=== PATIENT | male | born 1950 | race Caucasian/White ===

== ENCOUNTER → 2017-01-16 | Outpatient (CLI) | payer OTHER | LOC: FIMAGING 11:52 | PROVIDERS: ATTEND Nurse Practitioner Family | DX: R07.89 Other chest pain (principal); R05 Cough; I25.10 Atherosclerotic heart disease of native coronary artery without angina pectoris ==

== ENCOUNTER 2017-02-12 11:07 | Inpatient (IN) | payer OTHER ==
[~2017-02-12 11:07] MED LIST: BUPIVACAINE/EPI 0.25% 30 ML SDV ONE; LIDOCAINE 1% 5 ML SDV ID PRN; NS 1,000 ML IV ONE; THROMBIN (BOVINE) 5,000 UNIT VIAL TP ONE; ceFAZolin 2 GM/DEXTROSE 100 ML IV ONE
[2017-02-12] MEDS ORDERED: CEFAZOLIN 2 GM/DEXTROSE/100 ML BAG IV ONE (13:12)
[2017-02-12] MEDS ORDERED: MIDAZOLAM 2 MG/2 ML VIAL ONE (13:35)
[2017-02-12] MEDS ORDERED: PROPOFOL/EMULSION 500 MG/50 ML BOTTLE IV ONE (13:36)
[2017-02-12] MEDS ORDERED: fentaNYL 100 MCG/2 ML INJ ONE ×2 (13:38)
[2017-02-12] MEDS ORDERED: ROCURONIUM 100 MG/10 ML VIAL ONE (13:39)
[2017-02-12] MEDS ORDERED: DEXAMETHASONE 4 MG/ML VIAL ONE (13:39)
[2017-02-12] MEDS ORDERED: TEARS/DEXTRAN 70/HYPROMELLOSE 15 ML OPHT.BTL EACHEYE PRN (14:04)
[2017-02-12] MEDS ORDERED: morphINE PF 5 MG/10 ML INJ ONE (14:30)
[2017-02-12] MEDS ORDERED: diphenhydrAMINE 25 MG CAP PO PRN (14:50)
[2017-02-12] MEDS ORDERED: ONDANSETRON 4 MG/2 ML VIAL IVP PRN (14:50)
[2017-02-12] MEDS ORDERED: NALOXONE HCL 0.4 MG/ML INJ IVP PRN (14:50)
[2017-02-12] MEDS ORDERED: NARCOTIC DRIP BAG-TOTAL ALL TYPES EP PRN (14:50)
[2017-02-12] MEDS ORDERED: KETOROLAC 30 MG/1 ML SDV ONE (15:24)
--- NOTE | 2017-02-12 15:39 | POSTOPPROG ---
Post Op Note Date of Operation: 02/12/17 Surgeon: Richard Mckenna Shooter'S Helper: Tila Rubio Anesthesia: Epidural, GET(General Endotracheal) Pre-op Diagnosis: Carcinoma right middle lobe of lung Post-op Diagnosis: Same Indication: Squamous cell Carcinoma right middle lobe Procedure: Right thoracotomy, right middle lobectomy and wedge excision right upper lo Findings: Tumor replaced right middle lobe and was adherent to small part of right up Inf/Abcess present in the surg proc area at time of surgery?: No EBL: 50-100 Complications: None Drains: Other (Chest tube x 2)
[2017-02-12] MEDS ORDERED: SUGAMMADEX SODIUM 200 MG/2 ML VIAL IVP ONE (15:48)
[2017-02-12] MEDS ORDERED: IPRATROPIUM/ALBUTEROL 3 ML DEYVIAL IH PRN (15:55)
[2017-02-12] MEDS ORDERED: MAGNESIUM HYDROXIDE 30 ML UDCUP PO PRN (16:05)
[2017-02-12] MEDS ORDERED: LACTULOSE 20 GM/30 ML UDCUP PO PRN (16:05)
[2017-02-12] MEDS ORDERED: BISACODYL 10 MG SUPP PR PRN (16:05)
[2017-02-12] MEDS ORDERED: POLYETHYLENE GLYCOL 3350 17 GM PKT PO PRN (16:05)
[2017-02-12] MEDS: KETOROLAC 15 MG/1 ML SDV IVP SCH (20:49)
--- NOTE | 2017-02-12 21:11 | GOP ---
[f rep st] OPERATIVE REPORT DATE OF OPERATION: 02/12/2017 SURGEON: Richard Mckenna MD HEM INSPECTOR: OCTAVIO Vincent ANESTHESIA: General endotracheal. PREOPERATIVE DIAGNOSIS: Squamous cell cancer of the right middle lobe of the lung. POSTOPERATIVE DIAGNOSIS: Squamous cell cancer of the right middle lobe of the lung. PROCEDURE PERFORMED: Right thoracotomy, right middle lobectomy, and wedge excision of right upper l obe. FINDINGS: The tumor replaced the entire middle lobe. The major fissure was moderately complete. T here was no involvement of the lower lobe. There was involvement across the fissure to the upper lo be over a small distance of the superficial part of the lobe. ESTIMATED BLOOD LOSS: 50 cc. INDICATIONS: This is a 66-year-old male with a history of smoking, who was found to have a large ri ght middle lobe tumor. It was biopsied and showed squamous cell cancer. PET scan showed no evidenc e of metastatic disease, and he was referred for surgery. DESCRIPTION OF PROCEDURE: Consent was signed. The patient was taken to the operating room, and epi dural was placed, as was an arterial line. General endotracheal anesthesia was administered with a double lumen endotracheal tube. The patient was placed in the lateral decubitus position. The righ t chest was prepped and draped. A right lateral thoracotomy was performed. The patient chest was e ntered through the 5th intercostal space. The pleura was incised, and the inferior pulmonary ligame nt was mobilized. Level 9 and level 10 lymph nodes were removed and sent for permanent section. Af ter exploring the chest, the tumor appeared to be crossing the fissure and involving a little bit of the upper lobe. Using an Dolores stapler, a generous piece of the upper lobe was wedged off to omer ve attached to the tumor. The minor and major fissures were both completed with cautery adjacent to the middle lobe. The middle lobe pulmonary vein was divided with an endovascular stapler. The mid dle lobe pulmonary artery was divided with an endovascular stapler. The bronchus was divided with a n Dolores stapler. The small remaining part of the fissure at the confluence was divided with an Ec helon stapler, and the specimen was removed. Bronchial stump was checked and found to be airtight. Additional level 8, level 7, and level 11 lymph nodes were removed for permanent section. Laineas is was obtained. Intercostal nerve blocks were performed. Two chest tubes were placed in the right chest. Drill holes were placed through the lower rib and the ribs reapproximated with paracostal V icryl sutures, and the remainder of the chest was closed in the usual fashion. Dressings were appli ed. COMPLICATIONS: None. POSTOPERATIVE CONDITION: Stable. Copy requested to: Dr. Kvng Bonner [facility] /[id number]/MODL
[2017-02-12] MEDS: ceFAZolin 2 GM/DEXTROSE 100 ML IV SCH (22:10)
[2017-02-13] MEDS: HYDROmorph 10MCG/ML&BUP 0.1% in 100ML NS EP SCH (00:48)
[2017-02-13] MEDS: KETOROLAC 15 MG/1 ML SDV IVP SCH ×3 (00:52→12:06)
[2017-02-13 05:27] LABS: HEMATOCRIT 41.7 % (40.0-51.0); HEMOGLOBIN 13.7 g/dL (13.7-17.5)
[2017-02-13] MEDS: ceFAZolin 2 GM/DEXTROSE 100 ML IV SCH ×2 (05:47→15:43)
[2017-02-13 06:01] LABS: ANION GAP 9 mEq/L (8-16); CALCIUM 9.3 mg/dL (8.5-10.4); CARBON DIOXIDE 26 mEq/l (22-31); CHLORIDE 104 mEq/L (97-110); CREATININE 0.9 mg/dL (0.7-1.3); GLOMERULAR FILTRATION RATE > 60; GLUCOSE 116 mg/dL (70-100); POTASSIUM 4.9 mEq/L (3.5-5.2); SODIUM 139 mEq/L (134-144)
--- NOTE | 2017-02-13 08:15 | SOAPPROG ---
SOAP Progress Note Assessment/Plan: Assessment: POD#1 Rt thoracotomy, RMLobectomy, wedge rsxn RU lobe, and LN sampling Squamous cell CA of RML of lung - With partial involvement of upper lobe. Tumor excised en bloc via thoracotomy. Await path. Pain well controlled with epidural. Small air leak controlled with suction. Former smoker - 1/2 ppd x 30yrs, successfully quitting 1 mo ago. Extubated without incident. Minimal suppl O2 requirement. Mucolytics and bronchodilators prn. Plan: Keep pleurovac to suction at rest. Ok to convert to WS for ambulation. Keep epidural for 1-2 more days. Trial gonzalez removal. Inc activity and pulm toilet. Ok for tx to PCU. 02/13/17 08:09 Subjective: Comfortable. Tolerating diet and OOB. No acute concerns. Objective: Vital Signs Temp Pulse Resp BP Pulse Ox 37.1 C 69 18 127/61 H 97 02/13/17 05:00 02/13/17 06:01 02/13/17 06:01 02/13/17 06:01 02/13/17 06:01 Laboratory Results 02/13/17 05:10 02/13/17 05:42 02/12/17 02/13/17 02/14/17 05:59 05:59 05:59 Intake Total 2350 Output Total 1690 Balance 660 HR, rhythm and BP stable. Excellent sats on 2 Lpm O2. CXR-> no PTX or undrained pleural effusion. CTOP low. No air leak with nl tidal, intermittent leak w valsalva. Physical Exam - Physical Exam General Appearance: alert, no apparent distress Respiratory: crackles (rt sided, o/w CTA), other (chest tubes x 2 y-d to pleurovac, +tidal, no air leak with weak cough. ) Cardiac/Chest: regular rate, rhythm, other (Rt chest soft, no crepitus. Thoracotomy incision CDI. Small hematoma posterolateral pole. Epidural intact.) Abdomen: non-tender, soft Skin: warm/dry Extremities: other (no visible edema) ICD10 Worksheet Patient Problems: Problems Problem Status Onset S/P lobectomy of lung Acute ~02/12/17 S/P thoracotomy Acute ~02/12/17 Squamous cell carcinoma of right lung Acute Tobacco abuse Chronic
[2017-02-13] MEDS: SENNOSIDES/DOCUSATE SODIUM TAB PO SCH ×2 (09:24→20:27)
[2017-02-13] MEDS: guaiFENesin 600 MG TAB.ER PO SCH ×2 (09:25→20:27)
[2017-02-13] MEDS: DC NARCS MISC SCH (09:25)
[2017-02-13] MEDS: REGARDING ANTICOAG MISC SCH (09:25)
--- NOTE | 2017-02-13 12:19 | SOAPPROG ---
SOAP Progress Note Assessment/Plan: Assessment: Plan: Subjective: Good pain control w/ CTE. Site ok. Decrease infusion to 6cc/hr continue bolus as needed Objective: Vital Signs Temp Pulse Resp BP Pulse Ox 36.9 C 75 20 114/58 L 99 02/13/17 08:00 02/13/17 08:00 02/13/17 08:00 02/13/17 08:00 02/13/17 08:00 Laboratory Results 02/13/17 05:10 02/13/17 05:42 02/12/17 02/13/17 02/14/17 05:59 05:59 05:59 Intake Total 2350 Output Total 1690 Balance 660 ICD10 Worksheet Patient Problems: Problems Problem Status Onset S/P lobectomy of lung Acute ~02/12/17 S/P thoracotomy Acute ~02/12/17 Squamous cell carcinoma of right lung Acute Tobacco abuse Chronic
[2017-02-13] MEDS ORDERED: IBUPROFEN 600 MG TAB PO PRN (18:00)
[2017-02-14] MEDS: HYDROmorph 10MCG/ML&BUP 0.1% in 100ML NS EP SCH (00:05)
--- NOTE | 2017-02-14 08:06 | SOAPPROG ---
SOAP Progress Note Assessment/Plan: POD#2 Rt thoracotomy, RMLobectomy, wedge rsxn RU lobe, and LN sampling Squamous cell CA of RML of lung - With partial involvement of upper lobe. Tumor excised en bloc via thoracotomy. Await path. Pain well controlled with epidural - will keep in one more day. Small air leak resolved. Plan for dc of tube Saturday with discharge home. Former smoker - 1/2 ppd x 30yrs, successfully quitting 1 mo ago. Extubated without incident. Minimal suppl O2 requirement. Mucolytics and bronchodilators prn. Subjective: Pain well-controlled. Denies SOB. Objective: Vital Signs Temp Pulse Resp BP Pulse Ox 36.7 C 69 13 113/50 L 98 02/14/17 04:00 02/14/17 04:00 02/14/17 04:00 02/14/17 04:00 02/14/17 04:00 Laboratory Results 02/13/17 05:10 02/13/17 05:42 02/13/17 02/14/17 02/15/17 05:59 05:59 05:59 Intake Total 2350 2473 Output Total 1690 2295 525 Balance 660 178 -525 Physical Exam - Physical Exam General Appearance: WD/WN, alert, no apparent distress EENT: normal ENT inspection Neck: normal inspection Respiratory: No respiratory distress Cardiac/Chest: regular rate, rhythm, other (CT without air leak) Abdomen: non-tender, soft, No distended Skin: normal color, warm/dry Extremities: No pedal edema Neuro/Psych: no motor/sensory deficits, alert, normal mood/affect, oriented x 3 ICD10 Worksheet Patient Problems: Problems Problem Status Onset S/P lobectomy of lung Acute ~02/12/17 S/P thoracotomy Acute ~02/12/17 Squamous cell carcinoma of right lung Acute Tobacco abuse Chronic
[2017-02-14] MEDS: guaiFENesin 600 MG TAB.ER PO SCH ×2 (08:07→21:13)
[2017-02-14] MEDS: DC NARCS MISC SCH (08:08)
[2017-02-14] MEDS: SENNOSIDES/DOCUSATE SODIUM TAB PO SCH ×2 (08:08→21:13)
[2017-02-14] MEDS: REGARDING ANTICOAG MISC SCH (08:08)
--- NOTE | 2017-02-14 16:39 | SOAPPROG ---
SOAP Progress Note Assessment/Plan: Assessment: Plan: Subjective: pt seen earlier this morning, with good pain control with epidural. plan to discharge tomorrow. Will decrease epidural to 4cc/hr and turn off at 6:00 am. pt to start po meds per CTS. Objective: Vital Signs Temp Pulse Resp BP Pulse Ox 36.9 C 83 20 129/88 H 91 L 02/14/17 14:46 02/14/17 14:46 02/14/17 14:46 02/14/17 14:46 02/14/17 14:46 Laboratory Results 02/13/17 05:10 02/13/17 05:42 02/13/17 02/14/17 02/15/17 05:59 05:59 05:59 Intake Total 2350 1543 750 Output Total 9990 2295 1500 Balance 660 178 -750 ICD10 Worksheet Patient Problems: Problems Problem Status Onset S/P lobectomy of lung Acute ~02/12/17 S/P thoracotomy Acute ~02/12/17 Squamous cell carcinoma of right lung Acute Tobacco abuse Chronic
[2017-02-15] MEDS: HYDROmorph 10MCG/ML&BUP 0.1% in 100ML NS EP SCH (04:46)
--- NOTE | 2017-02-15 07:48 | SOAPPROG ---
SOAP Progress Note Assessment/Plan: Assessment: POD#3 Rt thoracotomy, RMLobectomy, wedge rsxn RU lobe, and LN sampling Squamous cell CA of RML of lung - With partial involvement of upper lobe. Tumor excised en bloc via thoracotomy. Await path. Pain well controlled with epidural. Small air leak resolved. Former smoker - 1/2 ppd x 30yrs, successfully quitting 1 mo ago. Extubated without incident. Minimal suppl O2 requirement. Mucolytics and bronchodilators prn. Plan: Remove chest tubes. Remove epidural. Cont NSAIDs. Trial oral narcs. Inc activity and pulm toilet. Wean O2. Dispo - Home this afternoon if pain controlled. 02/15/17 07:46 Subjective: Feels well. Tolerating light activity with ease. Good appetite. Satisfactory analgesia. Ready to go home. Objective: Vital Signs Temp Pulse Resp BP Pulse Ox 37.1 C 64 16 119/59 L 97 02/15/17 04:00 02/15/17 04:00 02/15/17 04:00 02/15/17 04:00 02/15/17 04:00 Laboratory Results 02/13/17 05:10 02/13/17 05:42 02/14/17 02/15/17 02/16/17 05:59 05:59 05:59 Intake Total 2473 1050 Output Total 2295 2750 Balance 178 -1700 Cardioresp status stable. Min suppl O2 requirement. Min CTOP. No air leak. - Pending Discharge Pending Discharge Within 24 Hours: Yes Pending Discharge Date: 02/16/17 Pending Discharge Time: 11:00 Physical Exam - Physical Exam General Appearance: alert, no apparent distress Respiratory: lungs clear, other (CTs x 2 y-d to pleurovac, thin serosang drainage, nl tidal, no AL) Abdomen: non-tender, soft Skin: warm/dry Extremities: other (no visible edema) ICD10 Worksheet Patient Problems: Problems Problem Status Onset S/P lobectomy of lung Acute ~02/12/17 S/P thoracotomy Acute ~02/12/17 Squamous cell carcinoma of right lung Acute Tobacco abuse Chronic
[2017-02-15 08:25] VITALS: TEMP 98.5
[2017-02-15] MEDS ORDERED: OXYCODONE/APAP 5/325 TAB PO PRN (09:30)
[2017-02-15] MEDS: SENNOSIDES/DOCUSATE SODIUM TAB PO SCH (09:41)
[2017-02-15] MEDS: guaiFENesin 600 MG TAB.ER PO SCH (09:41)
--- NOTE | 2017-02-15 09:41 | SOAPPROG ---
SOAP Progress Note Assessment/Plan: Assessment: Plan: Subjective: Good pain control, going home today. CTE currently off. Cath d/c, tip intact. Starting po meds Objective: Vital Signs Temp Pulse Resp BP Pulse Ox 36.9 C 64 19 138/71 H 96 02/15/17 08:24 02/15/17 08:24 02/15/17 08:24 02/15/17 08:24 02/15/17 08:24 Laboratory Results 02/13/17 05:10 02/13/17 05:42 02/14/17 02/15/17 02/16/17 05:59 05:59 05:59 Intake Total 2473 1050 Output Total 2295 2750 400 Balance 178 -1700 -400 ICD10 Worksheet Patient Problems: Problems Problem Status Onset S/P lobectomy of lung Acute ~02/12/17 S/P thoracotomy Acute ~02/12/17 Squamous cell carcinoma of right lung Acute Tobacco abuse Chronic
[2017-02-15] MEDS: REGARDING ANTICOAG MISC SCH (09:44)
[2017-02-15] MEDS: DC NARCS MISC SCH (10:45)
[2017-02-15 12:37] VITALS: BP 116/63; PULSE 67; RESP 16; O2SAT 93
--- NOTE | 2017-02-15 15:59 | PDDCSUM ---
Discharge Summary Discharge Summary: DATE OF ADMISSION: 02/12/17 DATE OF DISCHARGE: 02/15/17 DISPOSITION: Home, self-care PRINCIPAL ADMISSION DIAGNOSIS: Squamous cell lung carcinoma of the right middle lobe PRINCIPAL DISCHARGE DIAGNOSES: Status post right thoracotomy with right middle lobectomy and wedge resection of the right upper lobe. HISTORY OF PRESENT ILLNESS: 66 yo male smoker with a lingering cough found to have a 6 x 5 x 6 cm squamous cell carcinoma of the right middle lobe by CT guided lung biopsy. PET/CT negative for metastatic disease and referred for surgical excision. MEDICATIONS ON ADMISSION: Natural balance tears 1 drop each eye q2h prn, Ibuprofen 400 mg daily prn ALLERGIES/SENSITIVITIES: NKDA CONSULTANTS: none PROCEDURES/IMAGIN/9 ([facility]): Right posterolateral thoracotomy. Right middle lobectomy. Wedge excision of right upper lobe. Local lymph node sampling. ABBREVIATED HOSPITAL COURSE BY ACTIVE PROBLEM LIST: 1. Squamous cell CA of RML of lung - With partial involvement of upper lobe across the fissure. Tumor excised en bloc via thoracotomy. Path results awaited. Early postop pain well controlled with epidural. Satisfactory analgesia with NSAID and Gaston after chest tubes out. Oncology followup for staging and possible adjuvant therapy. 2. Former smoker - 1/2 ppd x 30yrs, successfully quitting 1 mo ago. Extubated without incident. Minimal suppl O2 requirement. No need for mucolytics or bronchodilators. DISCHARGE CLINICAL INFORMATION: Rt thoracotomy CDI, sutured, +Dermabond. HR 60s-80s. SBP 110s-130s. SpO2 85% RA, correcting to >93% on 1 Lpm O2. Hgb 13.7, HCT 41.7, Na 139, K 4.9, Cr 0.9, Calcium 9.3 DISCHARGE MEDICATIONS: As on admission with the following adjustments: Ok to increase ibuprofen to 600mg with meals and before bed. Max daily dose 3, 200 mg. Not to exceed 1 week of regular use. NEW prescriptions: 1. Gaston 5/325 one tab q 4-8h prn breakthrough incisional discomfort. 2. Oxygen @ 1Lpm continuously or as directed by SpO2. FOLLOW UP APPOINTMENTS: 1. CV surgery: with Dr Leary at [facility] on 02/26 at 10am. 2. Pulmonology: with Dr Zapata at [facility] within 2 weeks. Facilitation of oncology followup. FOLLOW UP TESTING: CXR prior to surgical appointment.
[2017-02-15] MEDS ORDERED: HYDROCODONE/APAP 5/325 TAB PO PRN (16:00)
== END 2017-02-15 17:31 | disposition home or self-care (01) | DRG 165 ==
LOC: F3E 11:07 → F2N 15:00 → F2W 02-14 14:41
PROVIDERS: ADMIT Thoracic Surgery (Cardiothoracic Vascular Surgery); ATTEND Thoracic Surgery (Cardiothoracic Vascular Surgery)
PROC: 0BTD0ZZ Resection of Right Middle Lung Lobe, Open Approach (ICD-10-PCS; principal; 2017-02-12 13:30)
PROC: 07T70ZZ Resection of Thorax Lymphatic, Open Approach (ICD-10-PCS; principal; 2017-02-12 13:30)
PROC: 0BB Respiratory System, Excision (ICD-10-PCS; principal; 2017-02-12 13:30)
DX: C34.2 Malignant neoplasm of middle lobe, bronchus or lung (principal); Z87.891 Personal history of nicotine dependence
CPT/HCPCS: 97116-GP; 97162-GP; 97166-GO; 97535-GO; G8978-GP-CK; G8979-GP-CI; G8980-GP-CI; G8987-GO-CJ; G8988-GO-CI; G8989-GO-CI; J0690; J1100; J1170; J1885; J2250; J2274; J2704; J3010

== ENCOUNTER → 2017-02-22 | Outpatient (CLI) | payer OTHER | LOC: FLAB 14:01 | PROVIDERS: ATTEND Thoracic Surgery (Cardiothoracic Vascular Surgery) | DX: J90 Pleural effusion, not elsewhere classified (principal); J98.11 Atelectasis; Z90.2 Acquired absence of lung [part of] ==

== ENCOUNTER 2017-04-21 20:24 | Inpatient (IN) | payer OTHER ==
--- NOTE | 2017-04-21 20:54 | EDPHY ---
H & P Stated Complaint: pt having vascular issues/pain in R foot x 3 days, think poss blood clot HPI/ROS: CHIEF COMPLAINT: Bilateral foot pain, swelling, and discoloration. HISTORY OF PRESENT ILLNESS: The patient is a 67-year-old male with history of squamous cell lung cancer, who presents with bilateral foot pain, swelling, and discoloration. The patient had a right middle lobectomy in February of 2017 and was started on preventative chemotherapy. Port placement was complicated by pneumothorax. Patient received two rounds of chemotherapy. Shortly after discharge the patient developed severe pain in his right great toe. Pain has persisted and now involves both feet. He has been seen into emergency department so for this pain and has been told that he has peripheral neuropathy. He has been treated with gabapentin and narcotics, with minimal relief. For the last 7 days he has been nonambulatory because of pain. Last week he had an US of his right lower extremity which was reportedly negative for DVT (study done elsewhere). He also had a lumbar MRI performed to assess for spinal cord or nerve root compression. He has not had calf swelling. No new shortness of breath. He quit smoking a few months ago after his lung cancer was diagnosed. Oncologist: Mynor Ruelas Surgeon: Richard Mckenna PCP: Jaren Catrer REVIEW OF SYSTEMS: A ten point review of systems was performed and is negative with the exception of the items mentioned in the HPI. Source: Patient, Family Exam Limitations: No limitations - Medical/Surgical History Hx Asthma: No Hx Chronic Respiratory Disease: No Hx Diabetes: No Hx Cardiac Disease: No Hx Renal Disease: No Hx Cirrhosis: No Hx Alcoholism: No Hx HIV/AIDS: No Hx Splenectomy or Spleen Trauma: No Other PMH: lung ca - partial lobectomy - Social History Smoking Status: Former smoker Additional Social History: . , son, and [id number] at bedside. Patient quit smoking in January. - Physical Exam Exam: General Appearance: Alert. Vital signs reviewed. Thin male. Eyes: Pupils equal and round, no conjunctival injection, no discharge. Anicteric. ENT, Mouth: Mucous membranes are moist, no oropharyngeal erythema or edema. Neck: No lymphadenopathy, supple. Trachea midline. Respiratory: Breath sounds diminished on the right. Cardiovascular: Regular rate and rhythm, no murmur. Gastrointestinal: Abdomen is soft and nontender, no masses or organomegaly, bowel sounds normal. Skin: Warm and dry, no rashes on exposed skin. Pulses: 2+ palpable femoral pulses. Posterior tibial pulses Dopplers bilaterally. On initial exam nursing staff was able to Doppler dorsalis pedis pulses but on a 2nd exam were unable to do so. Both feet are mildly erythematous, cool but not cold. The toes are slightly mottled with some pallor of the toes on the right foot. Neurological: Alert and oriented. Moving all four extremities spontaneously. Psychiatric: Normal affect. Constitutional: Initial Vital Signs Temperature (C) 37.4 C 04/21/17 20:27 Heart Rate 102 H 04/21/17 20:27 Respiratory Rate 18 04/21/17 20:27 Blood Pressure 129/78 H 04/21/17 20:27 O2 Sat (%) 97 04/21/17 20:27 O2 Delivery Mode Room Air Allergies/Adverse Reactions: No Known Allergies Allergy (Verified 04/21/17 20:31) Home Medications: Medication Instructions Recorded Tears/Dextran 70/Hypromellose 1 drop EACHEYE Q2 PRN 02/07/17 [Natural Balance Tears (*)] Hydrocodone/APAP 5/325 [[place] 1 tab PO Q4-8PRN PRN #30 tab 02/15/17 5/325 (*)] Ibuprofen [Motrin (*)] 400 mg PO DAILY PRN #0 02/15/17 Miralax 17 gm (*) 04/21/17 Valium 04/21/17 Medical Decision Making ED Course/Re-evaluation: Patient with history of lung cancer, last chemotherapy April 12, presents with bilateral foot pain, swelling, and discoloration. Patient was evaluated for this 7 days ago and told he had peripheral neuropathy. He was evaluated again because of persistent unremitting pain. He has been on Gabapentin and Narcotics for the past week and found no relief. His pain seems to be worsening. Patient received 0.5mg Dilaudid. I was unable to obtain dorsalis/pedis pulses via Doppler initially, nursing staff was able to Doppler pulses. Patient has normal palpable femoral pulses bilaterally. Patient was given Dilaudid 0.5 mg IV for pain relief. Patient reassessed and I was again unable to Doppler dorsalis pedis pulses. Nursing staff was also unable to do so. Bilateral lower extremity Ultrasound has been ordered and is being performed at 11:00 p.m.. During his stay in the emergency department I have noticed waxing and waning of his symptoms. His foot discoloration comes and goes. I spoke with Dr. Danny Ferreira at about the ultrasound. No DVT in either leg. The material handling technician did look at arterial blood flow during the study, although this was a study to assess the venous system. I was told that arterial flow was seen. At this point in time I do not think that he has a limb at risk. I spoke with the patient and his family with the results of his ultrasound. We spoke at some length about the difficulties he is having at home. He has been unable to ambulate because of pain. He has been taking 2 Vicodin every 4 hours, gabapentin in an escalating dose for the past 5 days, and Valium with minimal relief. Gini is his 3rd emergency department visit over the last week for this problem. He has had a rough course since his lung cancer diagnosis in February. I am recommending hospitalization for pain control and further evaluation as needed. - Data Points Medications Given: Discontinued Medications Hydromorphone HCl (Dilaudid) 0.5 mg IVP EDNOW ONE Stop: 04/21/17 21:47 Last Admin: 04/21/17 22:01 Dose: 0.5 mg Departure - Departure Disposition: [facility] Inpatient Acute Clinical Impression: Peripheral neuropathy due to chemotherapy, Foot pain, bilateral Condition: Good Referrals: Jaren Carter MD [Primary Care Provider] - As per Instructions Negrito Ruelas MD [Medical Doctor] - As per Instructions Report Scribed for: Tori Thurman Report Scribed by: Love Quintero Date of Report: 04/21/17 Time of Report: 21:16 Physician Review and Approval Statement: 04/21/17 20:54 Portions of this note were transcribed by the esthetician and manager medical spa. I, Dr. Tori Thurman, personally performed the history, physical exam, and medical decision- making; and confirmed the accuracy of the information in the transcribed note.
[2017-04-21] MEDS ORDERED: HYDROmorphONE/DILAUDID 1 MG/ML SYR IVP ONE (21:46)
[2017-04-22] MEDS ORDERED: LIDOCAINE/PRILOCAINE 1 EACH CRTUBE TP ONE (01:49)
[2017-04-22] MEDS ORDERED: HYDROmorphONE/DILAUDID 1 MG/ML SYR IVP PRN (02:11)
[2017-04-22] MEDS ORDERED: LACTULOSE 20 GM/30 ML UDCUP PO PRN (02:11)
[2017-04-22] MEDS ORDERED: ONDANSETRON 4 MG/2 ML VIAL IVP PRN (02:11)
[2017-04-22] MEDS ORDERED: ONDANSETRON DISINTEGRATING 4 MG TAB PO PRN (02:11)
[2017-04-22] MEDS ORDERED: POLYETHYLENE GLYCOL 3350 17 GM PKT PO PRN (02:11)
[2017-04-22] MEDS ORDERED: ACETAMINOPHEN 325 MG TAB PO PRN (02:11)
[2017-04-22] MEDS ORDERED: BISACODYL 10 MG SUPP PR PRN (02:11)
[2017-04-22] MEDS ORDERED: MAGNESIUM HYDROXIDE 30 ML UDCUP PO PRN (02:11)
--- NOTE | 2017-04-22 02:24 | PDGENHP ---
History and Physical - Chief Complaint LE pain - History of Present Illness 67 yo male with h/o squamous cell lung cancer presents to ED with burning LE pain. He was diagnosed with lung cancer in 02/2017 and underwent a partial lobectomy with clear margins that month. A port was placed and he suffered a pneumothorax during that event. Since then, he has started chemotherapy with cisplatin and a second agent, which they cannot recall. After his second round of chemo, he developed burning in his LE's. He describes this as feeling like he is being poked by hot pokers. It is worse in the right foot and sometimes is localized to his big toe, but can also spread into his right calf and thigh. His symptoms are worse with ambulation and it has become so painful, he is unable to ambulate. He was started on Gabapentin, currently on 300 mg BID, along with Hydrocodone 8 tabs a day, and Valium. He feels no benefit from this regimen. Overall, he reports a poor appetite, but is eating and drinking without nausea or vomiting. Denies fevers, chills, CP or SOB. In the ED, absent LE pulses were noted. A LE venous u/s was normal and reportedly the tech saw arterial flow. He is admitted to the hospital for further management of his pain. History Information - Allergies/Home Medication List Allergies/Adverse Reactions: No Known Allergies Allergy (Verified 04/21/17 20:31) Home Medications: Tears/Dextran 70/Hypromellose [Natural Balance Tears (*)] 1 drop EACHEYE Q2 PRN 02/07/17 [Last Taken Unknown] Miralax 17 gm (*) 04/21/17 [Last Taken Unknown] Valium 04/21/17 [Last Taken Unknown] I have personally reviewed and updated: family history, medical history, social history, surgical history - Past Medical History Additional medical history: squamous cell lung cancer s/p partial lobectomy, peripheral neuropathy, h/o pneumothorax after port placement in 02/2017 - Surgical History Additional surgical history: Port placement 02/2017, partial lobectomy 02/2017 - Family History Positive for: non-pertinent - Social History Smoking Status: Former smoker Alcohol Use: None Drug Use: None Additional social history: , present at bedside. Review of Systems ROS: 10pt was reviewed & negative except for what was stated in HPI & below Physical Exam Temp Pulse Resp BP Pulse Ox 37.2 C 81 16 157/69 H 96 04/22/17 01:13 04/22/17 01:13 04/22/17 01:13 04/22/17 01:13 04/22/17 01:13 Constitutional: no apparent distress Eyes: PERRL Ears, Nose, Mouth, Throat: moist mucous membranes Cardiovascular: regular rate and rhythym, no murmur, rub, or gallop Respiratory: no respiratory distress, clear to auscultation Gastrointestinal: normoactive bowel sounds, soft, non-tender abdomen Musculoskeletal: other (b/l distal LE's cool to touch with some vague patchy purplish discoloration, absent DP's and PT's) Neurologic: AAOx3 Psychiatric: interacting appropriately Assessment & Plan Assessment: Foot pain, bilateral (Acute) - DDx includes peripheral neuropathy due to side effect from chemo vs symptomatic peripheral artery disease in this former smoker. I discussed the case with Dr. Magallon from the surgery service. He recommends proceeding with CTA given symptoms and exam findings. U/S reportedly showed arterial flow, though this was a venous study and no arterial flow is documented. -CTA abd aorta with b/l LE runoff -assuming above test is neg, will up-titrate gabapentin to 600 mg BID, cont to increase as tolerated -stop norco (ineffective) and start MS Contin 15 mg BID, up-titrate as tolerated -add nortriptyline, watch for side effects -PT/OT to assess mobility Lung cancer - SCC, s/p partial lobectomy with negative margins. Followed by Dr. Ruelas at [facility]. Chemo regimen is cisplatin plus unknown agent. -check cbc, cmp given recent chemo 7 days ago -alert [facility] of pt's admission tomorrow -pt wishes to stop chemo, which he describes as preventive Constipation - bowel regimen Full code DVT PPLX - high risk, Lovenox Dispo - inpt, suspect he'll require >48 hrs hospitalization for acute pain control and mobility issues
[2017-04-22] MEDS: NORTRIPTYLINE HCL 10 MG CAP PO SCH ×2 (02:38→20:37)
[2017-04-22 02:43] LABS: % IMMATURE GRANULYOCYTES 0.2 % (0.0-1.1); ABSOLUTE IMMATURE GRANULOCYTES 0.01 10^3/uL (0.00-0.10); ADD DIFF? NO; ADD MORPH? NO; ADD SCAN? NO; ATYPICAL LYMPHOCYTE FLAG 0 (0-99); FRAGMENT RBC FLAG 0 (0-99); HEMATOCRIT 35.5 % (40.0-51.0); LEFT SHIFT FLG 20 (0-99); LIPEMIA HEMOLYSIS FLAG 90 (0-99); MEAN CELL HEMOGLOBIN 30.4 pg (27.9-34.1); MEAN CELL HEMOGLOBIN CONCENTR. 33.8 g/dL (32.4-36.7); MEAN CELL VOLUME 89.9 fL (81.5-99.8); MEAN PLATELET VOLUME 10.5 fL (8.7-11.7); PLATELET CLUMPS FLAG 0 (0-99); PLATELET COUNT 325 10^3/uL (150-400); RED BLOOD CELL COUNT 3.95 10^6/uL (4.40-6.38); RED CELL DISTRIBUTION WIDTH 13.3 % (11.5-15.2)
[2017-04-22 02:44] LABS: ALANINE AMINOTRANSFERASE 53 IU/L (21-72); ALBUMIN 3.7 g/dL (3.5-5.0); ALKALINE PHOSPHATASE 109 IU/L (38-126); ANION GAP 10 mEq/L (8-16); ASPARTATE AMINOTRANSFERASE 77 IU/L (17-59); BILIRUBIN,TOTAL 0.6 mg/dL (0.1-1.4); CARBON DIOXIDE 28 mEq/l (22-31); CHLORIDE 96 mEq/L (97-110); CREATININE 0.8 mg/dL (0.7-1.3); GLOMERULAR FILTRATION RATE > 60; GLUCOSE 107 mg/dL (70-100); POTASSIUM 4.5 mEq/L (3.5-5.2); SODIUM 134 mEq/L (134-144); TOTAL PROTEIN 6.4 g/dL (6.3-8.2)
[2017-04-22] MEDS ORDERED: IOPAMIDOL (ISOVUE 370) 100 ML BTL IV ONE (02:47)
[2017-04-22] MEDS: morphINE SR 15 MG TAB PO SCH ×3 (02:59→20:37)
[2017-04-22] MEDS: GABAPENTIN 300 MG CAP PO SCH ×3 (02:59→20:37)
[2017-04-22] MEDS ORDERED: HEPARIN 10,000 UNIT/10 ML MDV IVP PRN (04:37)
[2017-04-22] MEDS ORDERED: HEPARIN 10,000 UNIT/10 ML MDV IVP ONE (04:37)
[2017-04-22 05:25] LABS: % IMMATURE GRANULYOCYTES 0.2 % (0.0-1.1); ABSOLUTE IMMATURE GRANULOCYTES 0.01 10^3/uL (0.00-0.10); ADD DIFF? NO; ADD MORPH? NO; ADD SCAN? NO; ATYPICAL LYMPHOCYTE FLAG 50 (0-99); FRAGMENT RBC FLAG 0 (0-99); HEMATOCRIT 33.6 % (40.0-51.0); HEMOGLOBIN 11.6 g/dL (13.7-17.5); LEFT SHIFT FLG 20 (0-99); LIPEMIA HEMOLYSIS FLAG 90 (0-99); MEAN CELL HEMOGLOBIN 30.8 pg (27.9-34.1); MEAN CELL HEMOGLOBIN CONCENTR. 34.5 g/dL (32.4-36.7); MEAN CELL VOLUME 89.1 fL (81.5-99.8); MEAN PLATELET VOLUME 9.6 fL (8.7-11.7); PLATELET CLUMPS FLAG 0 (0-99); PLATELET COUNT 308 10^3/uL (150-400); RED BLOOD CELL COUNT 3.77 10^6/uL (4.40-6.38); RED CELL DISTRIBUTION WIDTH 13.3 % (11.5-15.2)
[2017-04-22 05:33] LABS: PROTIME(PATIENT) 13.1 SEC (12.0-15.0)
[2017-04-22 05:34] LABS: APTT 27.2 SEC (23.0-38.0)
--- NOTE | 2017-04-22 05:38 | HOSPPROG ---
Hospitalist Progress Note Assessment/Plan: Update to H&P: CTA revealed completely thrombosed aorta with collateral blood supply to LE's. His symptoms are claudication rather than peripheral neuropathy. Discussed case with Dr. Mikal Noel, vascular surgeon at [facility]. This is chronic, rather than acute. Will transfer to ICU for heparin drip and consult with Dr. Rubio, vascular surgeon at [facility], in the am. A total of 75 minutes was spent performing initial H&P and follow up visits with pt, along with providing critical care. Objective: Vital Signs Temp Pulse Resp BP Pulse Ox 37.2 C 81 16 157/69 H 96 04/22/17 01:13 04/22/17 01:13 04/22/17 01:13 04/22/17 01:13 04/22/17 01:13 Laboratory Results 04/22/17 05:18 PT 13.1 SEC (12.0-15.0) 04/22/17 05:18 INR 1.00 (0.83-1.16) 04/22/17 05:18 ICD10 Worksheet Patient Problems: Problems Problem Status Onset Foot pain, bilateral Acute Peripheral neuropathy due to chemotherapy Acute S/P lobectomy of lung Acute ~02/12/17 S/P thoracotomy Acute ~02/12/17 Squamous cell carcinoma of right lung Acute Tobacco abuse Chronic
[2017-04-22] MEDS: HEPARIN/DEXTROSE 500 ML IV SCH (05:51)
[2017-04-22] MEDS: HYDROmorphONE/DILAUDID 1 MG/ML SYR IVP PRN ×3 (06:07→18:33)
[2017-04-22] MEDS ORDERED: ENOXAPARIN 40 MG/0.4 ML SYR SC SCH (09:00)
[2017-04-22] MEDS: SENNOSIDES/DOCUSATE SODIUM TAB PO SCH ×2 (09:13→20:37)
--- NOTE | 2017-04-22 14:22 | HOSPPROG ---
Hospitalist Progress Note Assessment/Plan: # Thrombosed Abdominal Aorta- patient presenting with bilateral leg pain- absent LE pulses Aorta runoff (personally reviewed and interpreted) thrombosed aorta with collaterals oxygen saturations 96% on RA - heparin gtt - NPO - Dr. Rubio consulting and coordinating with IR - prn pain meds # squamous cell CA s/p partial lobectomy - oncology will follow along # proph - heparin gtt # Diet- NPO # dispo- > 2MN as pt needs surgical intervention and recovery time prior to dc I have discussed the case with surgery - they will consult and determine best intervention Subjective: pain controlled with IV meds Objective: Vital Signs Temp Pulse Resp BP Pulse Ox 37.2 C 83 18 144/65 H 96 04/22/17 05:48 04/22/17 05:48 04/22/17 05:48 04/22/17 05:48 04/22/17 05:48 Laboratory Results 04/22/17 05:18 PT 13.1 SEC (12.0-15.0) 04/22/17 05:18 INR 1.00 (0.83-1.16) 04/22/17 05:18 - Physical Exam Constitutional: appears nourished Eyes: anicteric sclera Ears, Nose, Mouth, Throat: moist mucous membranes Cardiovascular: regular rate and rhythym Respiratory: no respiratory distress, no rales or rhonchi Gastrointestinal: normoactive bowel sounds Genitourinary: no bladder fullness Skin: warm Musculoskeletal: No asymmetric calves Neurologic: AAOx3 Psychiatric: interacting appropriately, not anxious Lymph, Heme, Immunologic: no cervical LAD ICD10 Worksheet Patient Problems: Problems Problem Status Onset Foot pain, bilateral Acute Peripheral neuropathy due to chemotherapy Acute S/P lobectomy of lung Acute ~02/12/17 S/P thoracotomy Acute ~02/12/17 Squamous cell carcinoma of right lung Acute Tobacco abuse Chronic
[2017-04-22] MEDS: FILGRASTIM-SNDZ 300 MCG/0.5 ML SYR SC SCH (15:47)
[2017-04-22] MEDS ORDERED: LIDOCAINE 2% JELLY 20 ML (UROJECT) ONE (15:53)
[2017-04-22] MEDS: DIAZEPAM 5 MG TAB PO SCH (20:37)
--- NOTE | 2017-04-22 22:25 | SOAPPROG ---
NAGI Progress Note Assessment/Plan: Assessment: 67-year-old male with the acute aortic occlusion on top of chronic stenoses/ patient is difficulty walking for the last several months even as much as 2 years but now suddenly as more severe pain in his legs and CTA demonstrates a complete aortic occlusion down to the inguinal ligament with collateral flow filling up the runoff to his legs. Is concurrently on chemotherapy for lung cancer. This is adamant only has no residual known disease He also has some chronic back pain for which she has had injections and probably has some component of sciatica to explain some of his leg Have discussed his chemotherapy with Dr. Henning and Dr. Sal who feels like he is safe enough to proceed with surgery with a white count of 4000. He is not usually dropped with this chemotherapy Also discussed options with Interventional Radiology do not feel that the taken expeditiously clear this chronic aortic stenosis Will proceed with aortofemoral bypass as soon as we can schedule/risks and options been fully discussed and he wishes to proceed Is status post recent lung lobectomy for cancer His exam reveals no femoral or pedal pulses Plan: Aortofemoral bypass/continue anticoagulation with heparin/repeat the CBC in the a.m. 04/22/17 22:21 Objective: Vital Signs Temp Pulse Resp BP Pulse Ox 36.7 C 83 12 150/66 H 93 04/22/17 20:00 04/22/17 20:00 04/22/17 20:00 04/22/17 20:00 04/22/17 20:00 Laboratory Results 04/22/17 05:18 04/21/17 04/22/17 04/23/17 05:59 05:59 05:59 Intake Total 275 Output Total 1000 Balance -725 PT 13.1 SEC (12.0-15.0) 04/22/17 05:18 INR 1.00 (0.83-1.16) 04/22/17 05:18 ICD10 Worksheet Patient Problems: Problems Problem Status Onset Foot pain, bilateral Acute Peripheral neuropathy due to chemotherapy Acute S/P lobectomy of lung Acute ~02/12/17 S/P thoracotomy Acute ~02/12/17 Squamous cell carcinoma of right lung Acute Tobacco abuse Chronic
[2017-04-23] MEDS: HEPARIN/DEXTROSE 500 ML IV SCH (01:09)
[2017-04-23 04:21] LABS: HEMOGLOBIN 11.8 g/dL (13.7-17.5); MEAN CELL HEMOGLOBIN 30.4 pg (27.9-34.1); MEAN CELL HEMOGLOBIN CONCENTR. 33.7 g/dL (32.4-36.7); MEAN CELL VOLUME 90.2 fL (81.5-99.8); RED BLOOD CELL COUNT 3.88 10^6/uL (4.40-6.38); RED CELL DISTRIBUTION WIDTH 13.5 % (11.5-15.2)
--- NOTE | 2017-04-23 04:26 | GCON ---
[f rep st] CONSULTATION MEDICAL ONCOLOGY CONSULTATION HISTORY OF PRESENT ILLNESS: The patient is a 67-year-old male, who was diagnosed a couple of months ago with a right middle lobe lung carcinoma after presenting with some chest symptoms. This was resected by Dr. Luther and was found to represent an approximately 6 cm squamous cell carcinoma. There was no evidence of antonino involvement. There was evidence of visceropleural invasion. This was staged as a T2b N0 M0, stage IIB lung carcinoma. Adjuvant chemotherapy was recommended and he was treated with 2 treatments of cisplatin and vinorelbine. The most recent was given on 04/12. He has been developing increasing lower extremity pain which was initially felt to be a neuropathy related to chemotherapy; however, because of increasing symptoms, he was brought to the hospital and he was noted to have absent dorsalis pedis pulses. A CT angiogram was performed, which showed a completely thrombosed aorta with collateral blood supply to the lower extremities. Surgery is being contemplated and we are asked to consult, given his recent chemotherapy. Currently, he is awake and alert. He does have some lower extremity discomfort. White count today is 4000, hemoglobin 11.6, hematocrit 33.6, platelets 308,000. Chemistry panel is unremarkable. PAST MEDICAL HISTORY: Significant for a long smoking history, recently discontinued. He did have a pneumothorax after port placement In February of 2017. SOCIAL HISTORY: He is , accompanied by his and children currently PHYSICAL EXAMINATION: VITAL SIGNS: Blood pressure 144/65, temperature 99. He is not icteric. Lungs are clear. Cardiac exam is unremarkable. Abdomen is benign. Lower extremity exam shows absent dorsalis pedis pulse. The right toes are a bit cool to touch. Neurologic exam is nonfocal. LABORATORY DATA: Chemistry panel is unremarkable. IMPRESSION: Patient with resected lung cancer, who has received a couple treatments of adjuvant chemotherapy. He is going to be taken to surgery. Counts are really pretty good at this point in time, but I think to try to avoid neutropenic complications, which would complicate his surgery, I will place him on filgrastim on a daily basis. We will follow his counts. He indicates he does not want to continue with adjuvant chemotherapy. Our service will follow with you. /[id number]/MODL MTDD
[2017-04-23 05:45] LABS: ANION GAP 11 mEq/L (8-16); CALCIUM 9.2 mg/dL (8.5-10.4); CARBON DIOXIDE 26 mEq/l (22-31); CHLORIDE 99 mEq/L (97-110); CREATININE 0.9 mg/dL (0.7-1.3); GLOMERULAR FILTRATION RATE > 60; GLUCOSE 126 mg/dL (70-100); POTASSIUM 4.5 mEq/L (3.5-5.2); SODIUM 136 mEq/L (134-144)
[2017-04-23] MEDS: GABAPENTIN 300 MG CAP PO SCH ×2 (08:50→22:41)
[2017-04-23] MEDS: HYDROmorphONE/DILAUDID 1 MG/ML SYR IVP PRN ×2 (08:50→12:11)
[2017-04-23] MEDS: morphINE SR 15 MG TAB PO SCH ×2 (08:50→22:41)
[2017-04-23] MEDS: SENNOSIDES/DOCUSATE SODIUM TAB PO SCH ×2 (08:50→22:42)
[2017-04-23] MEDS ORDERED: ceFAZolin 2 GM/DEXTROSE 100 ML IV ONE (13:30)
--- NOTE | 2017-04-23 13:36 | SOAPPROG ---
SOAP Progress Note Assessment/Plan: Assessment: 1. Lung ca, s/p chemo, wbc 7K 2. occluded aorta Plan:To surgery today, continue filgrastim 04/23/17 13:35 Subjective: Feels ok Objective: Vital Signs Temp Pulse Resp BP Pulse Ox 99.9 F 81 16 126/61 H 98 04/23/17 12:00 04/23/17 12:00 04/23/17 12:00 04/23/17 12:00 04/23/17 12:00 Laboratory Results 04/23/17 04:00 04/23/17 04:00 04/22/17 04/23/17 04/24/17 05:59 05:59 05:59 Intake Total 821 Output Total 1400 Balance -579 PT 13.1 SEC (12.0-15.0) 04/22/17 05:18 INR 1.00 (0.83-1.16) 04/22/17 05:18 ICD10 Worksheet Patient Problems: Problems Problem Status Onset Foot pain, bilateral Acute Peripheral neuropathy due to chemotherapy Acute S/P lobectomy of lung Acute ~02/12/17 S/P thoracotomy Acute ~02/12/17 Squamous cell carcinoma of right lung Acute Tobacco abuse Chronic
--- NOTE | 2017-04-23 14:01 | PDINTPN ---
Special Effects Artist Progress Note Assessment/Plan: Assessment: Severe PAD: Pain improved. Anemia: Hgb stable Lung Ca: s/p RUL resection. On chemo, WBC low yesterday, higher today Plan: Aorto-bifem later today. Follow Hgb, WBC. Subjective: Pain better today, primarily right foot. No other complaints Objective: Vital Signs Temp Pulse Resp BP Pulse Ox 37.7 C 81 16 126/61 H 98 04/23/17 12:00 04/23/17 12:00 04/23/17 12:00 04/23/17 12:00 04/23/17 12:00 Laboratory Results 04/23/17 04:00 04/23/17 04:00 04/22/17 04/23/17 04/24/17 05:59 05:59 05:59 Intake Total 821 Output Total 1400 Balance -579 PT 13.1 SEC (12.0-15.0) 04/22/17 05:18 INR 1.00 (0.83-1.16) 04/22/17 05:18 Physical Exam - Physical Exam General Appearance: alert, no apparent distress EENT: normal ENT inspection Neck: normal inspection Respiratory: chest non-tender, lungs clear, normal breath sounds Cardiac/Chest: regular rate, rhythm, No edema Peripheral Pulses: 0: dorsalis-pedis (R), dorsalis-pedis (L) Abdomen: normal bowel sounds, non-tender, soft Skin: normal color, warm/dry Extremities: non-tender, normal inspection Neuro/Psych: alert, normal mood/affect, oriented x 3, No motor weakness ICD10 Worksheet Patient Problems: Problems Problem Status Onset Foot pain, bilateral Acute Peripheral neuropathy due to chemotherapy Acute S/P lobectomy of lung Acute ~02/12/17 S/P thoracotomy Acute ~02/12/17 Squamous cell carcinoma of right lung Acute Tobacco abuse Chronic
[2017-04-23] MEDS: FILGRASTIM-SNDZ 300 MCG/0.5 ML SYR SC SCH (14:10)
[2017-04-23] MEDS ORDERED: THROMBIN (BOVINE) 5,000 UNIT VIAL TP ONE (16:01)
[2017-04-23] MEDS ORDERED: BUPIVACAINE 0.5% 30 ML SDV ONE (16:02)
--- NOTE | 2017-04-23 17:50 | PDANEPAE ---
ANE History of Present Illness aorto bi femoral bypass ANE Past Medical History - Cardiovascular History Hx Hypertension: No Hx Arrhythmias: No Hx Chest Pain: No Hx Coronary Artery / Peripheral Vascular Disease: No Hx CHF / Valvular Disease: No Hx Palpitations: No - Pulmonary History Hx COPD: No Hx Asthma/Reactive Airway Disease: No Hx Recent Upper Respiratory Infection: No Hx Oxygen in Use at Home: No Hx Sleep Apnea: No Sleep Apnea Screening Result - Last Documented: Negative Pulmonary History Comment: recent chest tightness/congestion.R sided lung mass- denies SOB. quit smoking last month-4-5 cigs /day for 40 years - Neurologic History Hx Cerebrovascular Accident: No Hx Seizures: No Hx Dementia: No - Endocrine History Hx Diabetes: No - Renal History Hx Renal Disorders: No - Liver History Hx Hepatic Disorders: No - Neurological & Psychiatric Hx Hx Neurological and Psychiatric Disorders: Yes Neurological / Psychiatric History Comment: low back pain with pain in both legs (alternates legs) - Cancer History Hx Cancer: Yes Cancer History Comment: R lung, currently on chemo - Congenital Disorder History Hx Congenital Disorders: No - GI History GERD: no Hx Gastrointestinal Disorders: No - Other Health History Other Health History: seasonal allergies - Chronic Pain History Chronic Pain: No - Surgical History Prior Surgeries: tonsillectomy-child, lobectomy, port placement ANE Patient History - Allergies Allergies/Adverse Reactions: No Known Allergies Allergy (Verified 04/21/17 20:31) - Home Medications Home Medications: Diazepam [Valium 5 MG (*)] 5 mg PO HS 04/21/17 [Last Taken 04/20/17] Polyethylene Glycol 3350 [Miralax 17 gm (*)] 17 gm PO DAILY PRN 04/21/17 [Last Taken Unknown] Gabapentin [Neurontin 300 MG (*)] 300 mg PO TID 04/22/17 [Last Taken 04/21/17 16 :00] Herbals/Supplements -Info Only 1 each PO DAILY 04/22/17 [Last Taken Unknown] Multivitamins [Multivitamin (*)] 1 each PO DAILY 04/22/17 [Last Taken Unknown] Vitamin B Complex [Super B-50 Complex] 1 each PO DAILY 04/22/17 [Last Taken Unknown] - NPO status NPO Since - Liquids (Date): 04/23/17 NPO Since - Liquids (Time): 00:00 NPO Since - Solids (Date): 04/23/17 NPO Since - Solids (Time): 00:00 - Anes Hx Anes Hx: no prior problems - Smoking Hx Smoking Status: Former smoker - Alcohol Use Alcohol Use: None - Family Anes Hx Family Hx Anesthesia Complications: hx of n/v with pt.'s son ANE Labs/Vital Signs - Labs Result Diagrams: 04/23/17 04:00 04/23/17 04:00 - Vital Signs Blood Pressure: 134/59 Heart Rate: 84 Respiratory Rate: 16 O2 Sat (%): 100 Height: 172.72 cm Weight: 68.039 kg ANE Physical Exam - Airway Neck exam: FROM Mouth exam: dentures (partial upper dentures) - Pulmonary Pulmonary: clear to auscultation - Cardiovascular Cardiovascular: regular rate and rhythym - ASA Status ASA Status: III ANE Anesthesia Plan Anesthesia Plan: general endotracheal anesthesia
[2017-04-23] MEDS ORDERED: PROPOFOL 200 MG/20 ML VIAL ONE (18:07)
[2017-04-23] MEDS ORDERED: ROCURONIUM 50 MG/5 ML VIAL ONE ×2 (18:08→19:25)
[2017-04-23] MEDS ORDERED: fentaNYL 100 MCG/2 ML INJ ONE ×4 (18:08→20:59)
[2017-04-23] MEDS ORDERED: DEXAMETHASONE 4 MG/ML VIAL ONE (18:12)
[2017-04-23] MEDS ORDERED: PHENYLEPHRINE 10 MG/ML SDV ONE (18:13)
[2017-04-23] MEDS ORDERED: MIDAZOLAM 2 MG/2 ML VIAL ONE (18:26)
[2017-04-23] MEDS ORDERED: CITRATE DEXTROSE SOLN 500 ML BAG ONE ×2 (18:43→19:10)
[2017-04-23] MEDS ORDERED: REMIFENTANIL HCL 1 MG VIAL ONE ×2 (19:20→20:41)
[2017-04-23] MEDS ORDERED: PROTAMINE SULFATE 50 MG/5 ML VIAL IVP ONE ×2 (19:43→21:23)
[2017-04-23] MEDS ORDERED: HEPARIN 10,000 UNIT/10 ML MDV ONE (19:49)
[2017-04-23 19:58] LABS: BASE EXCESS -1.5 mEq/L (-2.5-2.5); BICARBONATE 22 mEq/L (22-26); HEMOGLOBIN ABG 10.6 gm/dL (14.5-17.3); IONIZED CALCIUM 1.15 MMOL/L (1.12-1.30); MEASURED OXYGEN SATURATION 99 % (92-95); PCO2 32 mmHg (34-38); PO2 150 mmHg (65-75); SODIUM ABG 133 mEq/L (137-146); TCO2 23 mEq/L (23-27)
--- NOTE | 2017-04-23 20:09 | HOSPPROG ---
Hospitalist Progress Note Assessment/Plan: # Thrombosed Abdominal Aorta- patient presenting with bilateral leg pain- absent LE pulses Aorta runoff - thrombosed aorta with collaterals TELE (personally reviewed and interpreted) sinus rhythm oxygen saturations 96% on 2L - heparin gtt - NPO for OR today - prn pain meds #Leukopenia - s/p filgrastim WBC 4-> 7 this am # squamous cell CA s/p partial lobectomy - oncology will follow along # proph - heparin gtt # Diet- NPO # dispo- > 2MN as pt needs surgical intervention and recovery time prior to dc I have discussed the case with surgery - pt to OR today for bypass Subjective: pain treated overnight Objective: Vital Signs Temp Pulse Resp BP Pulse Ox 37.7 C 84 16 134/59 H 100 04/23/17 12:00 04/23/17 17:54 04/23/17 17:54 04/23/17 17:54 04/23/17 17:54 Laboratory Results 04/23/17 04:00 04/23/17 04:00 04/22/17 04/23/17 04/24/17 05:59 05:59 05:59 Intake Total 821 Output Total 1400 Balance -579 PT 13.1 SEC (12.0-15.0) 04/22/17 05:18 INR 1.00 (0.83-1.16) 04/22/17 05:18 - Physical Exam Constitutional: appears nourished Eyes: anicteric sclera Ears, Nose, Mouth, Throat: moist mucous membranes Cardiovascular: regular rate and rhythym Respiratory: no respiratory distress Gastrointestinal: normoactive bowel sounds, soft, non-tender abdomen Genitourinary: no bladder fullness Skin: warm, other (dark discoloration of medial aspect of right great toe), No mottled Musculoskeletal: No asymmetric calves Neurologic: AAOx3 Psychiatric: interacting appropriately Lymph, Heme, Immunologic: no cervical LAD ICD10 Worksheet Patient Problems: Problems Problem Status Onset Foot pain, bilateral Acute Peripheral neuropathy due to chemotherapy Acute S/P lobectomy of lung Acute ~02/12/17 S/P thoracotomy Acute ~02/12/17 Squamous cell carcinoma of right lung Acute Tobacco abuse Chronic
--- NOTE | 2017-04-23 20:41 | POSTOPPROG ---
Post Op Note Date of Operation: 04/23/17 Surgeon: Taqueria Rubio Paper Pattern Inspector: 1. Liam Delvalle MD; 2. Nickie Forman PA-C Anesthesiologist: Ventura Sapp Anesthesia: GET(General Endotracheal) Pre-op Diagnosis: aortic occlusion Post-op Diagnosis: same Procedure: aortobifemoral bypass Findings: mixed calcified and ulcerated plaque with fresh clot Inf/Abcess present in the surg proc area at time of surgery?: No EBL: 500cc Complications: none
[2017-04-23] MEDS ORDERED: NALOXONE HCL 0.4 MG/ML INJ IVP PRN (20:42)
[2017-04-23] MEDS ORDERED: OXYCODONE/APAP 5/325 TAB PO PRN (20:43)
[2017-04-23] MEDS ORDERED: FUROSEMIDE 20 MG/2 ML VIAL ONE (20:44)
[2017-04-23] MEDS ORDERED: MANNITOL 20% 100 GM/500 ML BAG IV ONE (21:23)
[2017-04-23] MEDS ORDERED: DEXMEDETOMIDINE HCL 400 MCG in NS 100 ML IV SCH (21:30)
[2017-04-23] MEDS ORDERED: ONDANSETRON 4 MG/2 ML VIAL ONE (21:59)
--- NOTE | 2017-04-23 22:36 | POSTANESTH ---
Post Anesthetic Evaluation Cardiovascular Status: Normal, Stable Respiratory Status: Normal, Stable Level of Consciousness/Mental Status: Mildly Sleepy, Arousable Pain Control: Adequate, Prn Tx Ordered Nausea/Vomiting Control: Adequate, Prn Tx Ordered Complications Possibly Related to Anesthesia: None Noted (Sedated, on Presedex.)
[2017-04-23] MEDS: NS 1,000 ML IV SCH (22:37)
[2017-04-23] MEDS: DIAZEPAM 5 MG TAB PO SCH (22:41)
[2017-04-23] MEDS: NORTRIPTYLINE HCL 10 MG CAP PO SCH (22:41)
[2017-04-24] MEDS: HYDROmorphONE/DILAUDID 1 MG/ML SYR IVP PRN ×4 (00:17→18:44)
[2017-04-24] MEDS: HYDROmorphONE/DILAUDID 6 MG/30 ML PCA IV PRN (00:43)
[2017-04-24 04:02] LABS: HEMATOCRIT 37.5 % (40.0-51.0); HEMOGLOBIN 12.6 g/dL (13.7-17.5); MEAN CELL HEMOGLOBIN 30.3 pg (27.9-34.1); MEAN CELL HEMOGLOBIN CONCENTR. 33.6 g/dL (32.4-36.7); MEAN CELL VOLUME 90.1 fL (81.5-99.8); RED BLOOD CELL COUNT 4.16 10^6/uL (4.40-6.38); RED CELL DISTRIBUTION WIDTH 13.8 % (11.5-15.2)
[2017-04-24 04:14] LABS: ANION GAP 11 mEq/L (8-16); CALCIUM 8.3 mg/dL (8.5-10.4); CARBON DIOXIDE 20 mEq/l (22-31); CHLORIDE 105 mEq/L (97-110); GLOMERULAR FILTRATION RATE > 60; GLUCOSE 121 mg/dL (70-100); POTASSIUM 4.7 mEq/L (3.5-5.2); SODIUM 136 mEq/L (134-144)
[2017-04-24] MEDS: GABAPENTIN 300 MG CAP PO SCH ×2 (08:31→20:27)
[2017-04-24] MEDS: SENNOSIDES/DOCUSATE SODIUM TAB PO SCH ×2 (08:31→20:28)
[2017-04-24] MEDS: morphINE SR 15 MG TAB PO SCH ×2 (08:31→20:28)
--- NOTE | 2017-04-24 09:07 | SOAPPROG ---
NAGI Progress Note Assessment/Plan: Assessment: 67-year-old male with the acute aortic occlusion on top of chronic stenoses/ patient is difficulty walking for the last several months even as much as 2 years but now suddenly as more severe pain in his legs and CTA demonstrates a complete aortic occlusion down to the inguinal ligament with collateral flow filling up the runoff to his legs. Is concurrently on chemotherapy for lung cancer. This is adamant only has no residual known disease He also has some chronic back pain for which she has had injections and probably has some component of sciatica to explain some of his leg Have discussed his chemotherapy with Dr. Henning and Dr. Sal who feels like he is safe enough to proceed with surgery with a white count of 4000. He is not usually dropped with this chemotherapy Also discussed options with Interventional Radiology do not feel that the taken expeditiously clear this chronic aortic stenosis Will proceed with aortofemoral bypass as soon as we can schedule/risks and options been fully discussed and he wishes to proceed Is status post recent lung lobectomy for cancer His exam reveals no femoral or pedal pulses Plan: Aortofemoral bypass/continue anticoagulation with heparin/repeat the CBC in the a.m. 04/22/17 22:21 04/24/17 09:05 VS OK/ WOUNDS OK/ + PULSES/ FEET WARM/ ABD SOFT/ HCT STABLE/ CREAT OK/ UO + Objective: Vital Signs Temp Pulse Resp BP Pulse Ox 36.7 C 83 15 106/48 L 99 04/24/17 00:00 04/24/17 07:00 04/24/17 07:00 04/24/17 07:00 04/24/17 07:00 Laboratory Results 04/24/17 03:45 04/24/17 03:45 04/23/17 04/24/17 04/25/17 05:59 05:59 05:59 Intake Total 821 955 Output Total 1400 500 Balance -579 455 PT 13.1 SEC (12.0-15.0) 04/22/17 05:18 INR 1.00 (0.83-1.16) 04/22/17 05:18 ICD10 Worksheet Patient Problems: Problems Problem Status Onset Foot pain, bilateral Acute Peripheral neuropathy due to chemotherapy Acute S/P lobectomy of lung Acute ~02/12/17 S/P thoracotomy Acute ~05/09/17 Squamous cell carcinoma of right lung Acute Tobacco abuse Chronic
--- NOTE | 2017-04-24 12:09 | SOAPPROG ---
SOAP Progress Note Assessment/Plan: Assessment: 1. Lung ca, s/p chemo, wbc 13 k 2. occluded aorta, s/p aorto bifem bypass Plan:Hold filgrastim for now, follow wbc 04/23/17 13:35 04/24/17 12:07 Objective: Vital Signs Temp Pulse Resp BP Pulse Ox 97.9 F 77 12 85/53 L 97 04/24/17 08:00 04/24/17 09:00 04/24/17 09:00 04/24/17 09:00 04/24/17 09:00 Laboratory Results 04/24/17 03:45 04/24/17 03:45 04/23/17 04/24/17 04/25/17 05:59 05:59 05:59 Intake Total 821 955 Output Total 1400 500 165 Balance -579 455 -165 PT 13.1 SEC (12.0-15.0) 04/22/17 05:18 INR 1.00 (0.83-1.16) 04/22/17 05:18 ICD10 Worksheet Patient Problems: Problems Problem Status Onset Foot pain, bilateral Acute Peripheral neuropathy due to chemotherapy Acute S/P lobectomy of lung Acute ~02/12/17 S/P thoracotomy Acute ~02/12/17 Squamous cell carcinoma of right lung Acute Tobacco abuse Chronic
[2017-04-24] MEDS: FAMOTIDINE 20 MG/NACL 50 ML IV SCH ×2 (12:55→20:58)
--- NOTE | 2017-04-24 16:07 | HOSPPROG ---
Hospitalist Progress Note Assessment/Plan: assessment: 67-year-old male presents with acute aortic thrombus resulting in claudication Plan: # Thrombosed Abdominal Aorta. Resulting in claudication symptoms, right greater than left, requiring aortofemoral bypass, postop day 1 - patient presenting with bilateral leg pain, absent LE pulses - Aorta runoff, thrombosed aorta with collaterals - limited mobility to less than 45 degrees upright, remain NPO - holding systemic anticoagulation we initiating Lovenox tomorrow a.m. per surgery team # squamous cell CA s/p partial lobectomy - status post pegfilgrastim - oncology consultation appreciated # chronic pain w/ continuous opiate dependency. 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 Worrell on team rounds, we agreed to continue to augment with Precedex to relieve anxiety regarding pain control - once he is able to tolerate oral intake, reinitiate sustained release morphine immediately # proph. Holding pharm given postop status, reinitiate tomorrow # Diet. NPO # code. full # dispo.Pain management requiring intense use of LOCKSTITCH TUNNEL ELASTIC OPERATOR and Precedex, continue ICU level care Subjective: patient reports the pain is a significant issue Objective: Vital Signs Temp Pulse Resp BP Pulse Ox 36.9 C 77 12 100/53 L 99 04/24/17 15:00 04/24/17 15:00 04/24/17 15:00 04/24/17 15:00 04/24/17 15:00 Laboratory Results 04/24/17 03:45 04/24/17 03:45 04/23/17 04/24/17 04/25/17 05:59 05:59 05:59 Intake Total 821 955 Output Total 1400 500 415 Balance -579 455 -415 PT 13.1 SEC (12.0-15.0) 04/22/17 05:18 INR 1.00 (0.83-1.16) 04/22/17 05:18 - Physical Exam Constitutional: no apparent distress, not in pain, chronically ill appearing, uncomfortable Cardiovascular: systolic murmur ( 106 at the sternum), other ( palpable pulses in bilateral popliteals and dorsalis pedis), No irregularly irregular, No tachycardia Respiratory: no respiratory distress, no rales or rhonchi, clear to auscultation Gastrointestinal: tenderness ( mild to moderate palpation), other ( large abdominal incision site), No normoactive bowel sounds ( hypoactive bowel sounds) , No guarding Skin: other ( no erythema or ecchymoses surrounding the incision site) Psychiatric: other ( lethargic but arousable) ICD10 Worksheet Patient Problems: Problems Problem Status Onset Foot pain, bilateral Acute Peripheral neuropathy due to chemotherapy Acute S/P lobectomy of lung Acute ~02/12/17 S/P thoracotomy Acute ~02/12/17 Squamous cell carcinoma of right lung Acute Tobacco abuse Chronic
--- NOTE | 2017-04-24 16:24 | PDINTPN ---
Acute Care Assistant Progress Note Assessment/Plan: Assessment: Severe PAD: Pain improved. S/P Ao-bifem: Has surgical pain and ileus, as expected. Anemia: Hgb stable Lung Ca: s/p RUL resection. On chemo, WBC up last 2 days Plan: Follow Hgb, WBC. 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 Continue NPO 04/24/17 16:24 Subjective: C/O abdominal pain, not leg pain. Pain control fairly good. Objective: Vital Signs Temp Pulse Resp BP Pulse Ox 36.9 C 77 12 100/53 L 99 04/24/17 15:00 04/24/17 15:00 04/24/17 15:00 04/24/17 15:00 04/24/17 15:00 Laboratory Results 04/24/17 03:45 04/24/17 03:45 04/23/17 04/24/17 04/25/17 05:59 05:59 05:59 Intake Total 821 955 Output Total 1400 500 415 Balance -579 455 -415 PT 13.1 SEC (12.0-15.0) 04/22/17 05:18 INR 1.00 (0.83-1.16) 04/22/17 05:18 Physical Exam - Physical Exam General Appearance: alert, no apparent distress EENT: normal ENT inspection Neck: normal inspection Respiratory: lungs clear, normal breath sounds Cardiac/Chest: regular rate, rhythm, No edema Abdomen: soft, No normal bowel sounds (absent), No non-tender Skin: normal color, warm/dry Extremities: normal inspection Neuro/Psych: alert, normal mood/affect, oriented x 3 ICD10 Worksheet Patient Problems: Problems Problem Status Onset Foot pain, bilateral Acute Peripheral neuropathy due to chemotherapy Acute S/P lobectomy of lung Acute ~02/12/17 S/P thoracotomy Acute ~02/12/17 Squamous cell carcinoma of right lung Acute Tobacco abuse Chronic
--- NOTE | 2017-04-24 18:00 | GCON ---
[f rep st] CONSULTATION PULMONARY/CRITICAL CARE CONSULTATION DATE OF CONSULTATION: 04/22/2017 REFERRING PHYSICIAN: Carmencita Marquez MD REASON FOR CONSULTATION: Evaluation and management of lung cancer and anemia. 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 This was resected by Dr. Mckenna and was approximately 6 cm in size. It was squamous cell carcinoma. There was no antonino involvement but there was evidence of pleural invas ion. The stage is a 2b carcinoma. The patient received 2 treatments with cisplatin and vinorelbine . The most recent was on April 12. Over the past month or so, the patient had developed progressivel y increased leg pain that was felt to be due to neuropathy. He was admitted for worsening pain cont rol and was found to have extensive vascular disease with a thrombosed aorta that was felt to be acu te on chronic. He was seen in consultation by Dr. Rubio who has recommended an aortobifem bypass, b ut is somewhat concerned because the patient has recently received chemotherapy and his white blood count has been falling. The patient also has mild anemia. PAST MEDICAL HISTORY: 1. Pneumothorax, status post port placement in February of 2017. 2. Squamous cell carcinoma of the lung. MEDICATIONS: At the time of admission include [place], Valium, MiraLAX and Neurontin. ALLERGIES: None. SOCIAL HISTORY: The patient is . He is a former smoker. FAMILY HISTORY: Unremarkable. REVIEW OF SYSTEMS: A 10-point review of systems adds nothing to the History of Present Illness. PHYSICAL EXAMINATION: GENERAL: The patient is awake, alert, and in no acute distress. VITAL SIGNS : Blood pressure is 144/65 with a heart rate of 83, he is afebrile. Oxygen saturations are 96% on room air. HEENT: Normocephalic and atraumatic. No icterus. NECK: No JVD. Trachea is midline. CHEST: Clear to auscultation. CARDIAC: Regular rate and rhythm without murmur. ABDOMEN: Soft, n ontender. Bowel sounds are present. EXTREMITIES: No clubbing, cyanosis, or edema. He has absent pulses peripherally. His feet are slightly cool but not cold, and he has slightly delayed capillary refill. NEURO: The patient is awake, alert, and moves all extremities without asymmetric weakness . LABORATORY: Chemistry group is normal. CBC shows white blood count is 4.2 with a hemoglobin 11.6 a nd a platelet count of 308. A CT scan of the aorta shows aortoiliac occlusion in the infrarenal aorta as well as some stenosis o f the femoral arteries. Images reviewed. ASSESSMENT: 1. Aortoiliac occlusion. This is likely the cause of the patient's pain, which is most likely laura dication rather than neuropathic pain. 2. Anemia. This may be due to the patient's recent chemotherapy. 3. Leukopenia. This is mild and likely related to the patient's chemotherapy. 4. Lung cancer, status post resection with chemotherapy. The patient has no evidence of metastatic disease. RECOMMENDATIONS: Agree with proceeding with aortobifem bypass with approval of Oncology. His count s are slightly down but likely will not significantly increase his surgical risk. His hemoglobin an d white blood count will be followed closely. /[id number]/MODL
[2017-04-24] MEDS: DIAZEPAM 5 MG TAB PO SCH (20:27)
[2017-04-24] MEDS: NORTRIPTYLINE HCL 10 MG CAP PO SCH (20:28)
[2017-04-24] MEDS: NS 1,000 ML IV SCH (22:05)
[2017-04-25] MEDS: HYDROmorphONE/DILAUDID 1 MG/ML SYR IVP PRN ×2 (01:32→04:12)
[2017-04-25] MEDS: NS 1,000 ML IV SCH ×2 (05:51→22:04)
[2017-04-25 06:05] LABS: ABSOLUTE NRBC COUNT 0.02 10^3/uL (0-0.01); ADD DIFF? YES; ADD MORPH? NO; ATYPICAL LYMPHOCYTE FLAG 0 (0-99); FRAGMENT RBC FLAG 0 (0-99); HEMOGLOBIN 9.5 g/dL (13.7-17.5); LIPEMIA HEMOLYSIS FLAG 80 (0-99); MEAN CELL HEMOGLOBIN 30.1 pg (27.9-34.1); MEAN CELL HEMOGLOBIN CONCENTR. 32.8 g/dL (32.4-36.7); MEAN CELL VOLUME 91.8 fL (81.5-99.8); MEAN PLATELET VOLUME 10.1 fL (8.7-11.7); NRBC-AUTO% 0.1 % (0.0-0.2); PLATELET CLUMPS FLAG 0 (0-99); PLATELET COUNT 216 10^3/uL (150-400); RED BLOOD CELL COUNT 3.16 10^6/uL (4.40-6.38)
[2017-04-25 06:10] LABS: ALANINE AMINOTRANSFERASE 34 IU/L (21-72); ALBUMIN 2.1 g/dL (3.5-5.0); ALKALINE PHOSPHATASE 81 IU/L (38-126); ANION GAP 5 mEq/L (8-16); ASPARTATE AMINOTRANSFERASE 42 IU/L (17-59); BILIRUBIN,TOTAL 0.2 mg/dL (0.1-1.4); CARBON DIOXIDE 24 mEq/l (22-31); CHLORIDE 111 mEq/L (97-110); CREATININE 0.9 mg/dL (0.7-1.3); GLOMERULAR FILTRATION RATE > 60; GLUCOSE 106 mg/dL (70-100); POTASSIUM 4.5 mEq/L (3.5-5.2); SODIUM 140 mEq/L (134-144); TOTAL PROTEIN 4.3 g/dL (6.3-8.2)
[2017-04-25 06:20] LABS: ADD SCAN? NO; LEFT SHIFT FLG 300 (0-99)
[2017-04-25 06:52] LABS: PLATELET ESTIMATE ADEQUATE (ADEQ)
[2017-04-25 06:53] LABS: POLYCHROMASIA 1+
[2017-04-25] MEDS: SENNOSIDES/DOCUSATE SODIUM TAB PO SCH ×2 (08:35→21:16)
[2017-04-25] MEDS: morphINE SR 15 MG TAB PO SCH (08:36)
[2017-04-25] MEDS: GABAPENTIN 300 MG CAP PO SCH (08:37)
[2017-04-25] MEDS: FAMOTIDINE 20 MG/NACL 50 ML IV SCH ×2 (08:40→21:15)
[2017-04-25] MEDS: HYDROmorphONE/DILAUDID 6 MG/30 ML PCA IV PRN (09:25)
[2017-04-25] MEDS: KETOROLAC 15 MG/1 ML SDV IVP PRN (11:05)
[2017-04-25] MEDS: ACETAMINOPHEN 500 MG TAB PO SCH ×3 (11:06→21:16)
--- NOTE | 2017-04-25 11:10 | PDINTPN ---
Banking Management Consulting Manager Progress Note Assessment/Plan: Assessment: Severe PAD: Pain improved. S/P Ao-bifem: Has surgical pain and ileus, as expected. Anemia: Hgb down post-op. Lung Ca: s/p RUL resection. On chemo, WBC now high Delerium: Likely due to multiple drugs with THIN FILM TECHNICIAN effects. Slept poorly last night. Plan: Follow Hgb, WBC. RETAIL TRAINING MANAGER Dilaudid and Precedex drip for pain, melatonin. D/C Valium, nortriptyline, gabapentin. Add Toradol and scheduled acetaminophen. Advance PO per Dr. Rubio. Activity as tolerated. 04/25/17 11:10 Subjective: Confused and, at times, a bit agitated. Denies uncontrolled pain. Starting PO. Objective: Vital Signs Temp Pulse Resp BP Pulse Ox 36.4 C 100 29 H 119/57 L 98 04/25/17 08:00 04/25/17 10:14 04/25/17 10:14 04/25/17 10:14 04/25/17 10:14 Laboratory Results 04/25/17 05:38 04/25/17 05:38 04/24/17 04/25/17 04/26/17 05:59 05:59 05:59 Intake Total 955 3100 Output Total 500 1140 Balance 455 1960 PT 13.1 SEC (12.0-15.0) 04/22/17 05:18 INR 1.00 (0.83-1.16) 04/22/17 05:18 Physical Exam - Physical Exam General Appearance: alert, no apparent distress Neck: normal inspection Respiratory: lungs clear, normal breath sounds Cardiac/Chest: regular rate, rhythm, No edema Abdomen: normal bowel sounds, non-tender Skin: normal color, warm/dry Extremities: normal inspection Neuro/Psych: alert, normal mood/affect, oriented x 3 ICD10 Worksheet Patient Problems: Problems Problem Status Onset Foot pain, bilateral Acute Peripheral neuropathy due to chemotherapy Acute S/P lobectomy of lung Acute ~02/12/17 S/P thoracotomy Acute ~02/12/17 Squamous cell carcinoma of right lung Acute Tobacco abuse Chronic
[2017-04-25] MEDS: HYDROmorphONE/DILAUDID 2 MG TAB PO PRN ×2 (11:40→21:16)
[2017-04-25] MEDS: LIDOCAINE 5% 1 EA PATCH TD SCH (13:40)
[2017-04-25] MEDS ORDERED: ACETAMINOPHEN 325 MG TAB PO SCH (16:00)
--- NOTE | 2017-04-25 16:01 | HOSPPROG ---
Hospitalist Progress Note Assessment/Plan: assessment: 67-year-old male presents with acute aortic thrombus resulting in claudication Plan: # Thrombosed Abdominal Aorta. Resulting in claudication symptoms, right greater than left, requiring aortofemoral bypass, postop day 2 - patient presenting with bilateral leg pain, absent LE pulses - Aorta runoff, thrombosed aorta with collaterals - limited mobility to less than 45 degrees upright when in bed, otherwise can ambulate - lovenox to be initiated at direction of gen surg # squamous cell CA s/p partial lobectomy - status post pegfilgrastim - oncology consultation appreciated # chronic pain. likely 2/2 claudication, previously ascribed to back and possible neuropathy - extensively counseled patient / family regarding pain mgmt strategy of removing all sedating Rx and initiating only TELEVISION WRITER dilaudid/PO dilaudid/toradol, and using precedex for sleep # Acute encephalopathy. Evidenced by global brain dysfunction characterized as confusion, disorientation, hallucinations, all of which are an acute change from baseline, secondary to the combined toxic effects of morphine, gabapentin, norco - counseled family that we will stop all Rx other than the primary opiate/NSAID for post-op pain mgmt # proph. Holding pharm given postop status, reinitiate per surg # Diet. Adv per surg # code. full # dispo. Pain management requiring intense use of TELEVISION WRITER and Precedex, continue ICU level care Subjective: patient reports that he has been hallucinating on morning Objective: Vital Signs Temp Pulse Resp BP Pulse Ox 36.5 C 99 27 H 97/55 L 89 L 04/25/17 12:00 04/25/17 15:00 04/25/17 15:00 04/25/17 15:00 04/25/17 15:00 Laboratory Results 04/25/17 05:38 04/25/17 05:38 04/24/17 04/25/17 04/26/17 05:59 05:59 05:59 Intake Total 955 3100 250 Output Total 500 1140 350 Balance 455 1960 -100 PT 13.1 SEC (12.0-15.0) 04/22/17 05:18 INR 1.00 (0.83-1.16) 04/22/17 05:18 - Time Spent With Patient Time Spent with Patient: greater than 35 minutes Time Spent with Patient: Greater than 35 minutes spent on this patients care, greater than 50% of time spent counseling, educating, and coordinating care regarding the above mentioned plan. - Physical Exam Constitutional: chronically ill appearing, uncomfortable ( from back pain) Cardiovascular: systolic murmur ( 1/6 at the apex), pulses symmetric bilaterally ( palpable in the bilateral popliteals), No irregularly irregular, No tachycardia, No edema Respiratory: no respiratory distress, no rales or rhonchi, clear to auscultation , other ( poor inspiratory effort) Gastrointestinal: other ( central abdominal incision site), No normoactive bowel sounds ( hypoactive bowel sounds), No tenderness, No guarding, No distension Neurologic: AAOx3, No facial droop Psychiatric: poor memory, other ( concentration 5/7, naming 3/3, easily distracted and distressed) ICD10 Worksheet Patient Problems: Problems Problem Status Onset Peripheral neuropathy due to chemotherapy Acute Foot pain, bilateral Acute S/P lobectomy of lung Acute ~02/12/17 S/P thoracotomy Acute ~02/12/17 Tobacco abuse Chronic Squamous cell carcinoma of right lung Acute
--- NOTE | 2017-04-25 17:45 | SOAPPROG ---
NAGI Progress Note Assessment/Plan: Assessment: 67-year-old male with the acute aortic occlusion on top of chronic stenoses/ patient is difficulty walking for the last several months even as much as 2 years but now suddenly as more severe pain in his legs and CTA demonstrates a complete aortic occlusion down to the inguinal ligament with collateral flow filling up the runoff to his legs. Is concurrently on chemotherapy for lung cancer. This is adamant only has no residual known disease He also has some chronic back pain for which she has had injections and probably has some component of sciatica to explain some of his leg Have discussed his chemotherapy with Dr. Henning and Dr. Sal who feels like he is safe enough to proceed with surgery with a white count of 4000. He is not usually dropped with this chemotherapy Also discussed options with Interventional Radiology do not feel that the taken expeditiously clear this chronic aortic stenosis Will proceed with aortofemoral bypass as soon as we can schedule/risks and options been fully discussed and he wishes to proceed Is status post recent lung lobectomy for cancer His exam reveals no femoral or pedal pulses Plan: Aortofemoral bypass/continue anticoagulation with heparin/repeat the CBC in the a.m. 04/22/17 22:21 04/24/17 09:05 VS OK/ WOUNDS OK/ + PULSES/ FEET WARM/ ABD SOFT/ HCT STABLE/ CREAT OK/ UO + 04/25/17 17:43 WOUNDS LOOK GREAT/PULSES GREAT/VITAL SIGNS STABLE/AFEBRILE/SOMEWHAT CONFUSED ON THE PRECEDEX ANOTHER RELAXING MEDICATIONS/ABDOMEN IS SOFT NONTENDER WITH SOME BOWEL SOUNDS/ PLAN IS ADJUST HIS PAIN AND RELAXING MEDICATIONS AND EVENTUAL TRANSFER TO [facility] SURGE/HEMATOCRIT STABLE Objective: Vital Signs Temp Pulse Resp BP Pulse Ox 36.4 C 100 15 123/65 H 93 04/25/17 16:00 04/25/17 17:00 04/25/17 17:00 04/25/17 17:00 04/25/17 17:00 Laboratory Results 04/25/17 05:38 04/25/17 05:38 04/24/17 04/25/17 04/26/17 05:59 05:59 05:59 Intake Total 955 3100 250 Output Total 500 1140 350 Balance 455 1960 -100 PT 13.1 SEC (12.0-15.0) 04/22/17 05:18 INR 1.00 (0.83-1.16) 04/22/17 05:18 ICD10 Worksheet Patient Problems: Problems Problem Status Onset Foot pain, bilateral Acute Peripheral neuropathy due to chemotherapy Acute S/P lobectomy of lung Acute ~02/12/17 S/P thoracotomy Acute ~02/12/17 Squamous cell carcinoma of right lung Acute Tobacco abuse Chronic
[2017-04-25] MEDS: MELATONIN 3 MG TAB PO SCH (21:17)
[2017-04-25] MEDS: PATCH REMOVAL 1 EA PATCH TD SCH (21:17)
[2017-04-26] MEDS: HYDROmorphONE/DILAUDID 2 MG TAB PO PRN ×3 (04:48→18:04)
[2017-04-26] MEDS: NS 1,000 ML IV SCH (04:50)
[2017-04-26] MEDS: KETOROLAC 15 MG/1 ML SDV IVP PRN ×2 (05:05→10:04)
[2017-04-26 05:18] LABS: ABSOLUTE NRBC COUNT 0.03 10^3/uL (0-0.01); ADD DIFF? YES; ADD MORPH? NO; ATYPICAL LYMPHOCYTE FLAG 50 (0-99); FRAGMENT RBC FLAG 0 (0-99); HEMATOCRIT 26.2 % (40.0-51.0); HEMOGLOBIN 8.6 g/dL (13.7-17.5); LIPEMIA HEMOLYSIS FLAG 80 (0-99); MEAN CELL HEMOGLOBIN 30.3 pg (27.9-34.1); MEAN CELL HEMOGLOBIN CONCENTR. 32.8 g/dL (32.4-36.7); MEAN CELL VOLUME 92.3 fL (81.5-99.8); MEAN PLATELET VOLUME 9.9 fL (8.7-11.7); NRBC-AUTO% 0.2 % (0.0-0.2); PLATELET CLUMPS FLAG 10 (0-99); PLATELET COUNT 209 10^3/uL (150-400); RED BLOOD CELL COUNT 2.84 10^6/uL (4.40-6.38); RED CELL DISTRIBUTION WIDTH 14.2 % (11.5-15.2)
[2017-04-26 05:26] LABS: ADD SCAN? NO; LEFT SHIFT FLG 210 (0-99)
[2017-04-26 05:46] LABS: ANION GAP 7 mEq/L (8-16); CALCIUM 7.8 mg/dL (8.5-10.4); CARBON DIOXIDE 21 mEq/l (22-31); CHLORIDE 113 mEq/L (97-110); CREATININE 0.8 mg/dL (0.7-1.3); GLOMERULAR FILTRATION RATE > 60; GLUCOSE 76 mg/dL (70-100); POTASSIUM 3.8 mEq/L (3.5-5.2); SODIUM 141 mEq/L (134-144)
[2017-04-26 05:49] LABS: PLATELET ESTIMATE ADEQUATE (ADEQ); POLYCHROMASIA 1+; TOXIC GRANULATION PRESENT
[2017-04-26] MEDS: FAMOTIDINE 20 MG TAB PO SCH ×2 (09:10→21:22)
[2017-04-26] MEDS: SENNOSIDES/DOCUSATE SODIUM TAB PO SCH ×2 (09:10→21:22)
[2017-04-26] MEDS: ACETAMINOPHEN 500 MG TAB PO SCH ×3 (09:10→21:22)
[2017-04-26] MEDS: LIDOCAINE 5% 1 EA PATCH TD SCH (09:11)
[2017-04-26] MEDS: FAMOTIDINE 20 MG/NACL 50 ML IV SCH (09:44)
[2017-04-26] MEDS: ENOXAPARIN 40 MG/0.4 ML SYR SC SCH (10:51)
--- NOTE | 2017-04-26 11:21 | PDINTPN ---
Medium Cycle Salesperson Progress Note Assessment/Plan: Assessment: Severe PAD: Pain improved. S/P Ao-bifem: Has surgical pain and ileus, as expected, both improved today. Anemia: Hgb down again today. No signs active bleeding. Lung Ca: s/p RUL resection. On chemo, WBC now high Delerium: Likely due to multiple drugs with FIELD COORDINATOR effects. Slept better last night , delerium markedly improved. Plan: Follow Hgb, WBC. DIRECTOR MOBILE MEDIA SOLUTIONS Dilaudid for pain, melatonin. Remain off Valium, nortriptyline, gabapentin. Continue Toradol and scheduled acetaminophen. Stop Precedex. Advance PO per Dr. Rubio. Activity as tolerated. Transfer to [facility]. 04/26/17 11:21 Subjective: Feels OK, slept fairly well. Some tingling pain in his feet, minimal incisional pain. More oriented. Objective: Vital Signs Temp Pulse Resp BP Pulse Ox 36.6 C 76 15 121/58 H 96 04/25/17 20:00 04/26/17 10:00 04/26/17 10:00 04/26/17 10:00 04/26/17 10:00 Laboratory Results 04/26/17 05:15 04/26/17 05:15 04/25/17 04/26/17 04/27/17 05:59 05:59 05:59 Intake Total 3100 3358 Output Total 1140 1050 Balance 1960 2308 PT 13.1 SEC (12.0-15.0) 04/22/17 05:18 INR 1.00 (0.83-1.16) 04/22/17 05:18 Physical Exam - Physical Exam General Appearance: alert, no apparent distress EENT: normal ENT inspection Neck: normal inspection Respiratory: lungs clear, normal breath sounds Cardiac/Chest: regular rate, rhythm, No edema Abdomen: normal bowel sounds, non-tender, soft Skin: normal color, warm/dry Extremities: normal inspection Neuro/Psych: alert, normal mood/affect, oriented x 3 ICD10 Worksheet Patient Problems: Problems Problem Status Onset Foot pain, bilateral Acute Peripheral neuropathy due to chemotherapy Acute S/P lobectomy of lung Acute ~02/12/17 S/P thoracotomy Acute ~02/12/17 Squamous cell carcinoma of right lung Acute Tobacco abuse Chronic
[2017-04-26] MEDS: HYDROmorphONE/DILAUDID 1 MG/ML SYR IVP PRN ×2 (12:51→18:34)
--- NOTE | 2017-04-26 14:49 | HOSPPROG ---
Hospitalist Progress Note Assessment/Plan: assessment: 67-year-old male presents with acute aortic thrombus resulting in claudication Plan: # Thrombosed Abdominal Aorta. Resulting in claudication symptoms, right greater than left, requiring aortofemoral bypass, postop day 3 - patient presenting with bilateral leg pain, absent LE pulses - Aorta runoff, thrombosed aorta with collaterals - limited mobility to less than 45 degrees upright when in bed, otherwise can ambulate - d/w Dr. Rubio, recs ppx lovenox NOT therapeutic # squamous cell CA s/p partial lobectomy - status post pegfilgrastim - oncology consultation appreciated # chronic pain. likely 2/2 claudication, previously ascribed to back and possible neuropathy - counseled patient regarding cycling in PO dilaudid and weaning off of GLASS SCULLION, cycling in ibuprofen over toradol # Acute encephalopathy. Evidenced by global brain dysfunction characterized as confusion, disorientation, hallucinations, all of which are an acute change from baseline, secondary to the combined toxic effects of morphine, gabapentin, norco - significantly improved from day prior - weaned off precedex # proph. lovenox ppx # Diet. Adv per surg # code. full # dispo. adjusted to med surg status, has ongoing use of GLASS SCULLION Subjective: Counseled patient and family regarding activity recommendations per Dr. Rubio Objective: Vital Signs Temp Pulse Resp BP Pulse Ox 36.6 C 73 14 142/112 H 93 04/25/17 20:00 04/26/17 12:00 04/26/17 12:00 04/26/17 12:00 04/26/17 12:00 Laboratory Results 04/26/17 05:15 04/26/17 05:15 04/25/17 04/26/17 04/27/17 05:59 05:59 05:59 Intake Total 3100 3358 Output Total 1140 1050 Balance 1960 2308 PT 13.1 SEC (12.0-15.0) 04/22/17 05:18 INR 1.00 (0.83-1.16) 04/22/17 05:18 - Time Spent With Patient Time Spent with Patient: greater than 35 minutes Time Spent with Patient: Greater than 35 minutes spent on this patients care, greater than 50% of time spent counseling, educating, and coordinating care regarding the above mentioned plan. - Physical Exam Constitutional: no apparent distress, not in pain, chronically ill appearing, uncomfortable Cardiovascular: regular rate and rhythym, systolic murmur (1/6 at the sternum and apex), pulses symmetric bilaterally (Bilateral dorsalis pedis pulses are palpable), No irregularly irregular, No edema Respiratory: no respiratory distress, no rales or rhonchi, clear to auscultation Gastrointestinal: normoactive bowel sounds, tenderness (Mild around surgical incision site), other (Central abdominal incision site), No guarding Skin: other (Well healing incision site left groin without surrounding erythema or ecchymoses) Neurologic: AAOx3, sensation intact bilaterally Psychiatric: interacting appropriately, not anxious, not encephalopathic, thought process linear, other (Concentration 04/12) ICD10 Worksheet Patient Problems: Problems Problem Status Onset Peripheral neuropathy due to chemotherapy Acute Foot pain, bilateral Acute S/P lobectomy of lung Acute ~02/12/17 S/P thoracotomy Acute ~02/12/17 Tobacco abuse Chronic Squamous cell carcinoma of right lung Acute
--- NOTE | 2017-04-26 15:26 | SOAPPROG ---
NAGI Progress Note Assessment/Plan: Assessment: 67-year-old male with the acute aortic occlusion on top of chronic stenoses/ patient is difficulty walking for the last several months even as much as 2 years but now suddenly as more severe pain in his legs and CTA demonstrates a complete aortic occlusion down to the inguinal ligament with collateral flow filling up the runoff to his legs. Is concurrently on chemotherapy for lung cancer. This is adamant only has no residual known disease He also has some chronic back pain for which she has had injections and probably has some component of sciatica to explain some of his leg Have discussed his chemotherapy with Dr. Henning and Dr. Sal who feels like he is safe enough to proceed with surgery with a white count of 4000. He is not usually dropped with this chemotherapy Also discussed options with Interventional Radiology do not feel that the taken expeditiously clear this chronic aortic stenosis Will proceed with aortofemoral bypass as soon as we can schedule/risks and options been fully discussed and he wishes to proceed Is status post recent lung lobectomy for cancer His exam reveals no femoral or pedal pulses Plan: Aortofemoral bypass/continue anticoagulation with heparin/repeat the CBC in the a.m. 04/22/17 22:21 04/24/17 09:05 VS OK/ WOUNDS OK/ + PULSES/ FEET WARM/ ABD SOFT/ HCT STABLE/ CREAT OK/ UO + 04/25/17 17:43 WOUNDS LOOK GREAT/PULSES GREAT/VITAL SIGNS STABLE/AFEBRILE/SOMEWHAT CONFUSED ON THE PRECEDEX ANOTHER RELAXING MEDICATIONS/ABDOMEN IS SOFT NONTENDER WITH SOME BOWEL SOUNDS/ PLAN IS ADJUST HIS PAIN AND RELAXING MEDICATIONS AND EVENTUAL TRANSFER TO [facility] SURGE/HEMATOCRIT STABLE 04/26/17 15:24 DOING WELL/MUCH MORE ALERT OFF SEDATION/WOUND OKAY/PULSES GREAT/HEMATOCRIT STABLE/ABDOMEN SOFT NONTENDER WITH POSITIVE BOWEL SOUNDS POSITIVE FLATUS PLAN IS AMBULATE, ADVANCE DIET Objective: Vital Signs Temp Pulse Resp BP Pulse Ox 36.6 C 73 14 142/112 H 93 04/25/17 20:00 04/26/17 12:00 04/26/17 12:00 04/26/17 12:00 04/26/17 12:00 Laboratory Results 04/26/17 05:15 04/26/17 05:15 04/25/17 04/26/17 04/27/17 05:59 05:59 05:59 Intake Total 3100 3358 Output Total 1140 1050 Balance 1960 2308 PT 13.1 SEC (12.0-15.0) 04/22/17 05:18 INR 1.00 (0.83-1.16) 04/22/17 05:18 ICD10 Worksheet Patient Problems: Problems Problem Status Onset Foot pain, bilateral Acute Peripheral neuropathy due to chemotherapy Acute S/P lobectomy of lung Acute ~02/12/17 S/P thoracotomy Acute ~02/12/17 Squamous cell carcinoma of right lung Acute Tobacco abuse Chronic
--- NOTE | 2017-04-26 16:34 | SOAPPROG ---
SOAP Progress Note Assessment/Plan: Assessment: 1. Lung ca, s/p chemo, wbc 16 k 2. occluded aorta, s/p aorto bifem bypass Plan:Continue to Hold filgrastim, follow wbc 04/23/17 13:35 04/24/17 12:07 04/26/17 16:34 Objective: Vital Signs Temp Pulse Resp BP Pulse Ox 97.9 F 73 14 142/112 H 93 04/25/17 20:00 04/26/17 12:00 04/26/17 12:00 04/26/17 12:00 04/26/17 12:00 Laboratory Results 04/26/17 05:15 04/26/17 05:15 04/25/17 04/26/17 04/27/17 05:59 05:59 05:59 Intake Total 3100 3358 Output Total 1140 1050 Balance 1960 2308 PT 13.1 SEC (12.0-15.0) 04/22/17 05:18 INR 1.00 (0.83-1.16) 04/22/17 05:18 ICD10 Worksheet Patient Problems: Problems Problem Status Onset Foot pain, bilateral Acute Peripheral neuropathy due to chemotherapy Acute S/P lobectomy of lung Acute ~02/12/17 S/P thoracotomy Acute ~02/12/17 Squamous cell carcinoma of right lung Acute Tobacco abuse Chronic
[2017-04-26] MEDS: PATCH REMOVAL 1 EA PATCH TD SCH (21:22)
[2017-04-26] MEDS: MELATONIN 3 MG TAB PO SCH (21:22)
[2017-04-27] MEDS: HYDROmorphONE/DILAUDID 2 MG TAB PO PRN ×4 (01:17→23:30)
[2017-04-27] MEDS: HYDROmorphONE/DILAUDID 1 MG/ML SYR IVP PRN ×3 (01:19→19:21)
[2017-04-27 04:53] LABS: ABSOLUTE NRBC COUNT 0.05 10^3/uL (0-0.01); ADD DIFF? YES; ADD MORPH? NO; ATYPICAL LYMPHOCYTE FLAG 80 (0-99); FRAGMENT RBC FLAG 0 (0-99); HEMATOCRIT 26.5 % (40.0-51.0); HEMOGLOBIN 8.8 g/dL (13.7-17.5); LIPEMIA HEMOLYSIS FLAG 80 (0-99); MEAN CELL HEMOGLOBIN 29.8 pg (27.9-34.1); MEAN CELL HEMOGLOBIN CONCENTR. 33.2 g/dL (32.4-36.7); MEAN CELL VOLUME 89.8 fL (81.5-99.8); MEAN PLATELET VOLUME 9.9 fL (8.7-11.7); NRBC-AUTO% 0.4 % (0.0-0.2); PLATELET CLUMPS FLAG 10 (0-99); PLATELET COUNT 217 10^3/uL (150-400); RED BLOOD CELL COUNT 2.95 10^6/uL (4.40-6.38); RED CELL DISTRIBUTION WIDTH 14.2 % (11.5-15.2)
[2017-04-27 04:54] LABS: ADD SCAN? NO; LEFT SHIFT FLG 140 (0-99)
[2017-04-27 05:42] LABS: PLATELET ESTIMATE ADEQUATE (ADEQ); POLYCHROMASIA 1+; TOXIC GRANULATION PRESENT
[2017-04-27] MEDS: ENOXAPARIN 40 MG/0.4 ML SYR SC SCH (09:09)
[2017-04-27] MEDS: ACETAMINOPHEN 500 MG TAB PO SCH ×3 (09:09→20:55)
[2017-04-27] MEDS: SENNOSIDES/DOCUSATE SODIUM TAB PO SCH ×2 (09:09→20:55)
[2017-04-27] MEDS: FAMOTIDINE 20 MG TAB PO SCH ×2 (09:09→20:55)
[2017-04-27] MEDS: KETOROLAC 15 MG/1 ML SDV IVP PRN (09:18)
--- NOTE | 2017-04-27 11:19 | SOAPPROG ---
SOAP Progress Note Assessment/Plan: Assessment: 67-year-old male status post aortobifemoral bypass for distal aortic occlusion Pain appears well controlled, patient is also tolerating clears without issue. He has good bowel sounds today have advanced him to a regular diet. His legs are warm, with palpable distal pulses in both feet, calves are soft and warm. Patient will continue to work with Physical and Occupational therapy. Will work on disposition as he continues to make progress. Will also start him on baby aspirin which he should discontinue with for both cardioprotective and anti -platelet therapy given his new bypass. Plan: 04/27/17 11:18 Subjective: Doing well, tolerating clears, pain appears well controlled Objective: Vital Signs Temp Pulse Resp BP Pulse Ox 36.9 C 89 20 142/63 H 92 04/27/17 08:00 04/27/17 08:00 04/27/17 08:00 04/27/17 08:00 04/27/17 08:00 Laboratory Results 04/27/17 04:42 04/26/17 05:15 04/26/17 04/27/17 04/28/17 05:59 05:59 05:59 Intake Total 3358 620 Output Total 1050 Balance 2308 620 PT 13.1 SEC (12.0-15.0) 04/22/17 05:18 INR 1.00 (0.83-1.16) 04/22/17 05:18 ICD10 Worksheet Patient Problems: Problems Problem Status Onset Foot pain, bilateral Acute Peripheral neuropathy due to chemotherapy Acute S/P lobectomy of lung Acute ~02/12/17 S/P thoracotomy Acute ~02/12/17 Squamous cell carcinoma of right lung Acute Tobacco abuse Chronic
--- NOTE | 2017-04-27 13:49 | HOSPPROG ---
Hospitalist Progress Note Assessment/Plan: assessment: 67-year-old male presents with acute aortic thrombus resulting in claudication c/b acute on chronic bilat LE pain Plan: # Thrombosed Abdominal Aorta. Resulting in likely claudication symptoms, right greater than left, requiring aortofemoral bypass, postop day 4 - patient presenting with bilateral leg pain, absent LE pulses - Aorta runoff, thrombosed aorta with collaterals - limited mobility to less than 45 degrees upright when in bed, otherwise can ambulate - will require either home care vs. SNF (suggested [facility]), counseled patient extensively regarding the benefits of rehabing and increasing mobility as able # squamous cell CA s/p partial lobectomy - status post pegfilgrastim - oncology consultation appreciated # chronic pain. likely 2/2 claudication and possible neuropathic component, previously ascribed to back and possible neuropathy - patient has been able to wean off ANIMAL THERAPIST and is stabilizing on PO dilaudid, ibuprofen - pain in bilat LE continues, and, as I counseled the patient, it is possible that it is residual pain from muscular/nerve injury from ischemia from thrombosed aorta, and may improve over time - that said, will order outside records (MRI report from [facility]) to gauge whether it could be more radicular, and may benefit from reinitiation of low dose gabapentin or lyrica # Acute encephalopathy. Evidenced by global brain dysfunction characterized as confusion, disorientation, hallucinations, all of which are an acute change from baseline, secondary to the combined toxic effects of morphine, gabapentin, norco - resolved # proph. lovenox ppx # Diet. Adv per surg # code. full # dispo. HC vs. SNF in next 24hrs, requiring ongoing hospitalization to accomplish optimal pain control Subjective: counseled patient and family extensively regarding pain management possible sources of pain Objective: Vital Signs Temp Pulse Resp BP Pulse Ox 36.9 C 89 20 142/63 H 92 04/27/17 08:00 04/27/17 08:00 04/27/17 08:00 04/27/17 08:00 04/27/17 08:00 Laboratory Results 04/27/17 04:42 04/26/17 05:15 04/26/17 04/27/17 04/28/17 05:59 05:59 05:59 Intake Total 3358 620 Output Total 1050 Balance 2308 620 PT 13.1 SEC (12.0-15.0) 04/22/17 05:18 INR 1.00 (0.83-1.16) 04/22/17 05:18 - Time Spent With Patient Time Spent with Patient: greater than 35 minutes Time Spent with Patient: Greater than 35 minutes spent on this patients care, greater than 50% of time spent counseling, educating, and coordinating care regarding the above mentioned plan. - Physical Exam Constitutional: no apparent distress, not in pain, chronically ill appearing, uncomfortable Cardiovascular: regular rate and rhythym, no murmur, rub, or gallop, pulses symmetric bilaterally ( bilateral popliteals), No edema Respiratory: no respiratory distress, no rales or rhonchi, clear to auscultation Gastrointestinal: normoactive bowel sounds, soft, non-tender abdomen, no palpable masses, other ( central abdominal incision site) Skin: other ( no erythema or ecchymosis at the incision site in his abdomen or his bilateral groin) Neurologic: AAOx3 Psychiatric: interacting appropriately, not anxious, not encephalopathic, thought process linear ICD10 Worksheet Patient Problems: Problems Problem Status Onset Peripheral neuropathy due to chemotherapy Acute Foot pain, bilateral Acute S/P lobectomy of lung Acute ~02/12/17 S/P thoracotomy Acute ~02/12/17 Tobacco abuse Chronic Squamous cell carcinoma of right lung Acute
[2017-04-27] MEDS: ASPIRIN 81 MG CHEWABLE TAB PO SCH (15:16)
[2017-04-27] MEDS: LIDOCAINE 5% 1 EA PATCH TD SCH (15:16)
[2017-04-27] MEDS: MELATONIN 3 MG TAB PO SCH (20:55)
[2017-04-27] MEDS: PATCH REMOVAL 1 EA PATCH TD SCH (20:56)
[2017-04-28] MEDS: HYDROmorphONE/DILAUDID 1 MG/ML SYR IVP PRN ×3 (04:16→17:39)
[2017-04-28 04:28] LABS: ABSOLUTE NRBC COUNT 0.05 10^3/uL (0-0.01); ADD DIFF? YES; ADD MORPH? NO; ADD SCAN? NO; ATYPICAL LYMPHOCYTE FLAG 50 (0-99); FRAGMENT RBC FLAG 0 (0-99); HEMATOCRIT 29.3 % (40.0-51.0); HEMOGLOBIN 9.8 g/dL (13.7-17.5); LEFT SHIFT FLG 40 (0-99); LIPEMIA HEMOLYSIS FLAG 80 (0-99); MEAN CELL HEMOGLOBIN 29.6 pg (27.9-34.1); MEAN CELL HEMOGLOBIN CONCENTR. 33.4 g/dL (32.4-36.7); MEAN CELL VOLUME 88.5 fL (81.5-99.8); MEAN PLATELET VOLUME 9.9 fL (8.7-11.7); NRBC-AUTO% 0.3 % (0.0-0.2); PLATELET CLUMPS FLAG 0 (0-99); PLATELET COUNT 296 10^3/uL (150-400); RED BLOOD CELL COUNT 3.31 10^6/uL (4.40-6.38); RED CELL DISTRIBUTION WIDTH 14.3 % (11.5-15.2)
[2017-04-28 05:01] LABS: PLATELET ESTIMATE ADEQUATE (ADEQ); POLYCHROMASIA 1+
[2017-04-28] MEDS: HYDROmorphONE/DILAUDID 2 MG TAB PO PRN ×2 (08:16→14:08)
[2017-04-28] MEDS: SENNOSIDES/DOCUSATE SODIUM TAB PO SCH ×2 (08:18→20:09)
[2017-04-28] MEDS: ACETAMINOPHEN 500 MG TAB PO SCH ×3 (08:18→20:09)
[2017-04-28] MEDS: ASPIRIN 81 MG CHEWABLE TAB PO SCH (08:19)
[2017-04-28] MEDS: FAMOTIDINE 20 MG TAB PO SCH (08:19)
[2017-04-28] MEDS: LIDOCAINE 5% 1 EA PATCH TD SCH (08:19)
[2017-04-28] MEDS: ENOXAPARIN 40 MG/0.4 ML SYR SC SCH (08:19)
--- NOTE | 2017-04-28 10:06 | HOSPPROG ---
Hospitalist Progress Note Assessment/Plan: a Assessment: 67-year-old male presents with acute aortic thrombus resulting in claudication c/b acute on chronic bilat LE pain Plan: # Thrombosed Abdominal Aorta. Resulting in likely claudication symptoms, right greater than left - patient presenting with bilateral leg pain, absent LE pulses, received aorta runoff, noting thrombosed aorta with collaterals, requiring aortofemoral bypass by Dr. Rubio, postop day 5 - limited mobility (when sitting) to less than 45 degrees upright when in bed, otherwise can ambulate and engage in PT - started on ASA 04/27 - check lipid panel - will need outpt f/u w/ Dr. Rubio scheduled, surg site currently looking well healed # Squamous cell CA s/p partial lobectomy and actively receiving chemo - status post pegfilgrastim - oncology consultation appreciated, will require outpt f/u # Chronic bilateral upper leg pain (and continuous opiate dependency). 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 2/2 toxic effects of initial medications, resolved # proph. High risk, lovenox ppx # Diet. Regular # code. full # dispo. HC vs. SNF ([facility] auth in process) in next 24hrs, requiring ongoing hospitalization to accomplish optimal pain control Subjective: patient with acute pain this morning, improved with IV Dilaudid Objective: Vital Signs Temp Pulse Resp BP Pulse Ox 36.8 C 79 16 141/76 H 95 04/28/17 08:00 04/28/17 08:00 04/28/17 08:00 04/28/17 08:00 04/28/17 08:00 Laboratory Results 04/28/17 04:15 04/26/17 05:15 04/27/17 04/28/17 04/29/17 05:59 05:59 05:59 Intake Total 620 600 Balance 620 600 PT 13.1 SEC (12.0-15.0) 04/22/17 05:18 INR 1.00 (0.83-1.16) 04/22/17 05:18 - Pending Discharge Pending Discharge Within 24 Hours: Yes Pending Discharge Date: 04/29/17 Pending Discharge Time: 11:00 - Physical Exam Constitutional: no apparent distress, not in pain, chronically ill appearing, other ( resting comfortably), No uncomfortable Cardiovascular: systolic murmur ( 2/6 at the sternum), pulses symmetric bilaterally ( 2+ bilateral dorsalis pedis), No irregularly irregular, No bradycardia, No edema Respiratory: no respiratory distress, no rales or rhonchi, clear to auscultation Gastrointestinal: normoactive bowel sounds, soft, non-tender abdomen, no palpable masses Neurologic: other ( response to tactile stimuli) ICD10 Worksheet Patient Problems: Problems Problem Status Onset Peripheral neuropathy due to chemotherapy Acute Foot pain, bilateral Acute S/P lobectomy of lung Acute ~02/12/17 S/P thoracotomy Acute ~02/12/17 Tobacco abuse Chronic Squamous cell carcinoma of right lung Acute
[2017-04-28] MEDS: IBUPROFEN 600 MG TAB PO PRN ×2 (12:48→20:15)
[2017-04-28] MEDS: D5W 1/2 NS W/ 10 KCl/L 1,000 ML IV SCH ×2 (13:24→23:47)
[2017-04-28] MEDS: MELATONIN 3 MG TAB PO SCH (20:09)
[2017-04-28] MEDS: PATCH REMOVAL 1 EA PATCH TD SCH (20:10)
[2017-04-28] MEDS ORDERED: GABAPENTIN 300 MG CAP PO SCH (21:00)
[2017-04-29 04:06] LABS: % IMMATURE GRANULYOCYTES 2.8 % (0.0-1.1); ADD DIFF? NO; ADD MORPH? NO; ADD SCAN? NO; ATYPICAL LYMPHOCYTE FLAG 40 (0-99); FRAGMENT RBC FLAG 0 (0-99); HEMOGLOBIN 9.8 g/dL (13.7-17.5); LEFT SHIFT FLG 20 (0-99); LIPEMIA HEMOLYSIS FLAG 90 (0-99); MEAN CELL HEMOGLOBIN CONCENTR. 33.8 g/dL (32.4-36.7); MEAN CELL VOLUME 88.7 fL (81.5-99.8); MEAN PLATELET VOLUME 9.9 fL (8.7-11.7); PLATELET CLUMPS FLAG 0 (0-99); PLATELET COUNT 301 10^3/uL (150-400); RED BLOOD CELL COUNT 3.27 10^6/uL (4.40-6.38); RED CELL DISTRIBUTION WIDTH 14.3 % (11.5-15.2)
[2017-04-29 04:28] LABS: ANION GAP 10 mEq/L (8-16); CALCIUM 8.3 mg/dL (8.5-10.4); CARBON DIOXIDE 23 mEq/l (22-31); CHLORIDE 108 mEq/L (97-110); CHOLESTEROL 116 mg/dL (140-220); CHOLESTEROL/HDL RATIO 6.11 RATIO (1.00-4.97); CREATININE 0.7 mg/dL (0.7-1.3); GLOMERULAR FILTRATION RATE > 60; GLUCOSE 111 mg/dL (70-100); HIGH DENSITY LIPOPROTEIN 19 mg/dL (40-65); LDL/HDL RATIO 3.26 RATIO (1.00-3.64); LOW DENSITY LIPOPROTEIN 62 mg/dL (80-100); NON-HIGH DENSITY LIPOPROTEIN 97 mg/dL (90-129); POTASSIUM 3.6 mEq/L (3.5-5.2); SODIUM 141 mEq/L (134-144); TRIGLYCERIDE 177 mg/dL (40-150); VERY LOW DENSITY LIPOPROTEINS 35 mg/dL (8-25)
[2017-04-29] MEDS: HYDROmorphONE/DILAUDID 2 MG TAB PO PRN ×3 (05:53→15:12)
[2017-04-29] MEDS: IBUPROFEN 600 MG TAB PO PRN (05:53)
[2017-04-29] MEDS: SENNOSIDES/DOCUSATE SODIUM TAB PO SCH ×2 (08:12→20:24)
[2017-04-29] MEDS: LIDOCAINE 5% 1 EA PATCH TD SCH (08:12)
[2017-04-29] MEDS: ACETAMINOPHEN 500 MG TAB PO SCH ×3 (08:12→22:00)
[2017-04-29] MEDS: ASPIRIN 81 MG CHEWABLE TAB PO SCH (08:12)
[2017-04-29] MEDS: ENOXAPARIN 40 MG/0.4 ML SYR SC SCH (08:13)
[2017-04-29] MEDS ORDERED: IBUPROFEN 600 MG TAB PO PRN (09:21)
[2017-04-29] MEDS ORDERED: GABAPENTIN 300 MG CAP PO SCH (09:21)
--- NOTE | 2017-04-29 09:24 | HOSPPROG ---
Hospitalist Progress Note Assessment/Plan: S/P aorto-bifem bypass - POD #6. recovering well, ambulating, bowels moving. -daily ASA per surgery. LE pain - suspect neuropathic pain related to nerve injury in setting chronically poor blood supply and possibly reperfusion pain -up-titrate gabapentin -cont prn ibuprofen, dilaudid -PT/OT Fever - Tmax 101.5 last night. No localizing infectious symptoms. WBC's normal. Central line looks okay. Incisions clean. -send blood cultures given central line -check CXR -LE u/s to r/o DVT given RLE swelling and clot could cause fever -start IS, could be atelectatic fever though no hypoxemia Lung cancer - oncology following, outpt f/u planned Low HDL - LDL 62. Will discuss with cards if statin indicated in setting of PAD. Full code DVT PPLX - Lovenox Dispo - cont inpt. Likely to SNF when ready Subjective: Pt continues to complain of LE pain. Overall, this is not as bad as on admission. Describes as burning. Able to walk now. Bowels moving. Eating well. No abdominal pain, CP, SOB or cough. He was not aware of fever last night. Objective: Vital Signs Temp Pulse Resp BP Pulse Ox 36.7 C 69 16 157/74 H 97 04/29/17 07:52 04/29/17 07:52 04/28/17 23:48 04/29/17 07:55 04/29/17 07:52 Laboratory Results 04/29/17 03:50 04/29/17 03:50 04/28/17 04/29/17 04/30/17 05:59 05:59 05:59 Intake Total 600 1250 Output Total 1 Balance 600 1249 PT 13.1 SEC (12.0-15.0) 04/22/17 05:18 INR 1.00 (0.83-1.16) 04/22/17 05:18 - Physical Exam Constitutional: no apparent distress Eyes: PERRL Ears, Nose, Mouth, Throat: moist mucous membranes Cardiovascular: regular rate and rhythym Respiratory: no respiratory distress, clear to auscultation Gastrointestinal: normoactive bowel sounds, soft, non-tender abdomen Skin: warm Musculoskeletal: full muscle strength Neurologic: AAOx3 Psychiatric: interacting appropriately ICD10 Worksheet Patient Problems: Problems Problem Status Onset Foot pain, bilateral Acute Peripheral neuropathy due to chemotherapy Acute S/P lobectomy of lung Acute ~02/12/17 S/P thoracotomy Acute ~02/12/17 Squamous cell carcinoma of right lung Acute Tobacco abuse Chronic
--- NOTE | 2017-04-29 10:57 | SOAPPROG ---
SOAP Progress Note Assessment/Plan: Assessment/Plan: 67 Y M lung CA on chemotherapy, acute on chronic aortic occlusion s/p aortobifem bypass. Excellent pulses. Feet warm. No signs of compartment/reperfusion syndrome. C/o pain. Likely neuropathic. Increasing gabapentin dose. Wounds clean, intact. Fever overnight--appreciate IM's orders to evaluate. Seen with Dr. Rubio. 04/29/17 10:55 Objective: Vital Signs Temp Pulse Resp BP Pulse Ox 36.7 C 69 16 157/74 H 97 04/29/17 07:52 04/29/17 07:52 04/28/17 23:48 04/29/17 07:55 04/29/17 07:52 Laboratory Results 04/29/17 03:50 04/29/17 03:50 04/28/17 04/29/17 04/30/17 05:59 05:59 05:59 Intake Total 600 1250 Output Total 1 Balance 600 1249 PT 13.1 SEC (12.0-15.0) 04/22/17 05:18 INR 1.00 (0.83-1.16) 04/22/17 05:18 ICD10 Worksheet Patient Problems: Problems Problem Status Onset Foot pain, bilateral Acute Peripheral neuropathy due to chemotherapy Acute S/P lobectomy of lung Acute ~02/12/17 S/P thoracotomy Acute ~02/12/17 Squamous cell carcinoma of right lung Acute Tobacco abuse Chronic
[2017-04-29] MEDS ORDERED: LIDOCAINE 2% JELLY 5 ML TUBE TP PRN (11:10)
[2017-04-29] MEDS: GABAPENTIN 300 MG CAP PO SCH ×3 (11:22→22:02)
[2017-04-29] MEDS: MELATONIN 3 MG TAB PO SCH (20:20)
[2017-04-29] MEDS: PATCH REMOVAL 1 EA PATCH TD SCH (20:27)
[2017-04-30] MEDS: HYDROmorphONE/DILAUDID 2 MG TAB PO PRN (06:32)
[2017-04-30] MEDS: ACETAMINOPHEN 500 MG TAB PO SCH ×3 (09:53→21:09)
[2017-04-30] MEDS: ASPIRIN 81 MG CHEWABLE TAB PO SCH (09:53)
[2017-04-30] MEDS: GABAPENTIN 300 MG CAP PO SCH ×3 (09:53→21:10)
[2017-04-30] MEDS: ENOXAPARIN 40 MG/0.4 ML SYR SC SCH (09:53)
[2017-04-30] MEDS: LIDOCAINE 5% 1 EA PATCH TD SCH (09:54)
[2017-04-30] MEDS: SENNOSIDES/DOCUSATE SODIUM TAB PO SCH ×2 (09:56→21:10)
--- NOTE | 2017-04-30 13:11 | HOSPPROG ---
Hospitalist Progress Note Assessment/Plan: Distal aorta occlussion S/P aorto-bifem bypass - POD #7. recovering well, ambulating, tolerating po though poor intake, bowels moving. -daily ASA per surgery -will add statin LE pain - suspect neuropathic pain related to nerve injury in setting chronically poor blood supply and possibly reperfusion pain. improving with increased dose of gabapentin. -up-titrate gabapentin as needed for symptom control -cont prn ibuprofen, dilaudid -PT/OT Fever - suspect charting error. This has not persisted. Lung cancer - oncology following, outpt f/u planned. Holding chemo for now. Low HDL - LDL 62. Discussed with cards, add statin as above Full code DVT PPLX - Lovenox Dispo - cont inpt. Likely to SNF when ready, possibly tomorrow Subjective: Pt feels better. Decreased pain in feet. reports poor oral intake. He is quite weak. Objective: Vital Signs Temp Pulse Resp BP Pulse Ox 37.1 C 66 18 141/71 H 95 04/30/17 07:42 04/30/17 07:42 04/30/17 07:42 04/30/17 07:42 04/30/17 07:42 Laboratory Results 04/29/17 03:50 04/29/17 03:50 04/29/17 04/30/17 05/01/17 05:59 05:59 05:59 Intake Total 1250 1760 Output Total 1 850 Balance 1249 910 PT 13.1 SEC (12.0-15.0) 04/22/17 05:18 INR 1.00 (0.83-1.16) 04/22/17 05:18 - Physical Exam Constitutional: no apparent distress Eyes: PERRL Ears, Nose, Mouth, Throat: moist mucous membranes Cardiovascular: regular rate and rhythym Respiratory: no respiratory distress, clear to auscultation Gastrointestinal: normoactive bowel sounds, soft, non-tender abdomen, other ( incisions c/d/i) Skin: warm Musculoskeletal: other (b/l LE's warm with 2+ DP's) Neurologic: AAOx3 Psychiatric: interacting appropriately ICD10 Worksheet Patient Problems: Problems Problem Status Onset Foot pain, bilateral Acute Peripheral neuropathy due to chemotherapy Acute S/P lobectomy of lung Acute ~02/12/17 S/P thoracotomy Acute ~02/12/17 Squamous cell carcinoma of right lung Acute Tobacco abuse Chronic
[2017-04-30] MEDS: ATORVASTATIN CALCIUM 20 MG TAB PO SCH (15:24)
[2017-04-30 15:49] VITALS: RESP 16
--- NOTE | 2017-04-30 16:38 | SOAPPROG ---
SOAP Progress Note Assessment/Plan: Assessment/Plan: 67 Y M lung CA on chemotherapy, acute on chronic aortic occlusion s/p aortobifem bypass. Excellent pulses. Feet warm. Neuropathic pain improved since increase in gabapentin. Wounds clean, intact. S: leg pain better. doing some walking. not very hungry. +BM. O: alert, nad no wob rrr abd soft, inc cdi, mikel in place ext: wwp, excellent pedal pulses. 04/30/17 16:33 Objective: Vital Signs Temp Pulse Resp BP Pulse Ox 36.9 C 75 16 141/71 H 96 04/30/17 15:47 04/30/17 15:47 04/30/17 15:47 04/30/17 15:47 04/30/17 15:47 Laboratory Results 04/29/17 03:50 04/29/17 03:50 04/29/17 04/30/17 05/01/17 05:59 05:59 05:59 Intake Total 1250 1760 200 Output Total 1 850 Balance 1249 910 200 PT 13.1 SEC (12.0-15.0) 04/22/17 05:18 INR 1.00 (0.83-1.16) 04/22/17 05:18 ICD10 Worksheet Patient Problems: Problems Problem Status Onset Foot pain, bilateral Acute Peripheral neuropathy due to chemotherapy Acute S/P lobectomy of lung Acute ~02/12/17 S/P thoracotomy Acute ~02/12/17 Squamous cell carcinoma of right lung Acute Tobacco abuse Chronic
--- NOTE | 2017-04-30 16:47 | SOAPPROG ---
SOAP Progress Note Assessment/Plan: Assessment: 1. Stage IIB NSCLC 2. s/p aorto-fem bypass 3. peripheral neuropathy in feet. Chemo effect (cisplatin, 1 dose) vs ischemia vs other Plan: - holding adjuvant chemo for now. - pt should f/u with Dr. Ruelas in 1-2 weeks. pt reluctant to resume chemo as even the first two doses were difficult for him - can increase gabapentin for neuropathy, or try Lyrica 04/30/17 16:45 Subjective: still c/o neuropathy in feet. otherwise well. Objective: exam: NAD good pedal pulses, no cyanosis Vital Signs Temp Pulse Resp BP Pulse Ox 36.9 C 75 16 141/71 H 96 04/30/17 15:47 04/30/17 15:47 04/30/17 15:47 04/30/17 15:47 04/30/17 15:47 Laboratory Results 04/29/17 03:50 04/29/17 03:50 04/29/17 04/30/17 05/01/17 05:59 05:59 05:59 Intake Total 1250 1760 200 Output Total 1 850 Balance 1249 910 200 PT 13.1 SEC (12.0-15.0) 04/22/17 05:18 INR 1.00 (0.83-1.16) 04/22/17 05:18 ICD10 Worksheet Patient Problems: Problems Problem Status Onset Foot pain, bilateral Acute Peripheral neuropathy due to chemotherapy Acute S/P lobectomy of lung Acute ~02/12/17 S/P thoracotomy Acute ~02/12/17 Squamous cell carcinoma of right lung Acute Tobacco abuse Chronic
[2017-04-30] MEDS: MELATONIN 3 MG TAB PO SCH (21:10)
[2017-04-30] MEDS: PATCH REMOVAL 1 EA PATCH TD SCH (21:13)
[2017-05-01] MEDS: HYDROmorphONE/DILAUDID 2 MG TAB PO PRN (03:31)
[2017-05-01 08:08] VITALS: BP 134/74; PULSE 70; TEMP 98.7; O2SAT 96
[2017-05-01] MEDS: LIDOCAINE 5% 1 EA PATCH TD SCH (08:51)
--- NOTE | 2017-05-01 08:53 | PDIAF ---
- Diagnosis Diagnosis: Chronic aortic occlusion, s/p aortobifem bypass Code Status: Full Code - Medication Management Discharge Medications: Medications to Continue on Transfer Diazepam [Valium 5 MG (*)] 5 mg PO HS 04/21/17 [Last Taken 04/20/17] Herbals/Supplements -Info Only 1 each PO DAILY 04/22/17 [Last Taken Unknown] Multivitamins [Multivitamin (*)] 1 each PO DAILY 04/22/17 [Last Taken Unknown] Vitamin B Complex [Super B-50 Complex] 1 each PO DAILY 04/22/17 [Last Taken Unknown] Acetaminophen [Tylenol ES 500 mg (*)] 1,000 mg PO TID #90 tab 05/01/17 [Last Taken Unknown] Aspirin [Aspirin 81mg (*)] 81 mg PO DAILY #90 tab.chew 05/01/17 [Last Taken Unknown] Atorvastatin Calcium [Lipitor 20 mg (*)] 20 mg PO DAILY #90 tab 05/01/17 [Last Taken Unknown] Gabapentin [Neurontin 300 MG (*)] 600 mg PO TID #90 cap 05/01/17 [Last Taken Unknown] HYDROmorphone HCL [Dilaudid 2 mg (*)] 2 - 4 mg PO Q6H PRN #30 tab 05/01/17 [ Last Taken Unknown] Melatonin [Melatonin 3 MG (*)] 3 mg PO HS #30 tab 05/01/17 [Last Taken Unknown] Polyethylene Glycol 3350 [Miralax 17 gm (*)] 17 gm PO DAILY PRN #0 pkt 05/01/17 [Last Taken Unknown] Sennosides/Docusate Sodium [Senokot-S] 1 - 2 tab PO BID tab 05/01/17 [Last Taken Unknown] Discharge Medications: Refer to the Discharge Home Medication list for PRN reason. PICC Care - Routine: N/A - Orders Services needed: Registered Nurse, Physical Therapy, Occupational Therapy Diet Recommendation: no restrictions on diet Wound Care Instructions: Follow up with Dr. Rubio 1 week for wound check and staple removal Activity/Weight Bearing Restrictions: as tolerated - Follow Up Care Current Providers and Referrals: Negrito Ruelas MD [Medical Doctor] - As per Instructions Jaren Carter MD [Primary Care Provider] - As per Instructions Taqueria Rubio MD [Medical Doctor] -
[2017-05-01] MEDS: ACETAMINOPHEN 500 MG TAB PO SCH (08:55)
[2017-05-01] MEDS: ASPIRIN 81 MG CHEWABLE TAB PO SCH (08:56)
[2017-05-01] MEDS: ATORVASTATIN CALCIUM 20 MG TAB PO SCH (08:56)
[2017-05-01] MEDS: SENNOSIDES/DOCUSATE SODIUM TAB PO SCH (08:57)
[2017-05-01] MEDS: ENOXAPARIN 40 MG/0.4 ML SYR SC SCH (08:58)
[2017-05-01] MEDS ORDERED: GABAPENTIN 300 MG CAP PO SCH (09:00)
--- NOTE | 2017-05-01 09:43 | SOAPPROG ---
SOAP Progress Note Assessment/Plan: Assessment/Plan: 67 Y M lung CA on chemotherapy, acute on chronic aortic occlusion s/p aortobifem bypass. Excellent pulses. Feet warm. Titrating gabapentin for better neuropathic pain control. Wounds clean, intact. D/c today per medicine. D/w Dr. Rosenberg. F/u with us and Dr. Ruelas. S: leg pain better. doing some walking. not very hungry. +BM. O: alert, nad no wob rrr abd soft, inc cdi, mikel in place ext: wwp, excellent pedal pulses. 05/01/17 09:42 Objective: Vital Signs Temp Pulse Resp BP Pulse Ox 37.1 C 70 16 134/74 H 96 05/01/17 08:00 05/01/17 08:00 05/01/17 08:00 05/01/17 08:00 05/01/17 08:00 Laboratory Results 04/29/17 03:50 04/29/17 03:50 04/30/17 05/01/17 05/02/17 05:59 05:59 05:59 Intake Total 1760 225 Output Total 850 Balance 910 225 PT 13.1 SEC (12.0-15.0) 04/22/17 05:18 INR 1.00 (0.83-1.16) 04/22/17 05:18 ICD10 Worksheet Patient Problems: Problems Problem Status Onset Foot pain, bilateral Acute Peripheral neuropathy due to chemotherapy Acute S/P lobectomy of lung Acute ~02/12/17 S/P thoracotomy Acute ~02/12/17 Squamous cell carcinoma of right lung Acute Tobacco abuse Chronic
--- NOTE | 2017-05-02 00:08 | GDS ---
[f rep st] DISCHARGE SUMMARY DISCHARGE DIAGNOSES: 1. Acute on chronic distal aortic occlusion, status post aortobifemoral bypass. 2. Peripheral neuropathy. 3. Squamous cell lung cancer, status post partial lobectomy with clear margins. 4. Low HDL. 5. Subtle nodularity in the adrenal glands bilaterally, which should have outpatient follow-up imag ing. 6. Peripheral vascular disease. CONSULTANTS: 1. Dr. Jm Rubio, General Surgery. 2. Dr. Marcus Worrell, Pulmonology. 3. Dr. Soy Sal, Oncology. IMAGING STUDIES/PROCEDURES: 1. Lower extremity venous Doppler was negative for DVT in bilateral lower extremities. 2. CT angiogram of the aorta with bilateral lower extremity runoff April 22, 2017, showed a high-gra de aortoiliac occlusion with underlying calcific stenosis in the infrarenal aorta with epigastric an d circumflex iliac collaterals suggestive of chronic nature. Also noted 50% stenosis in the common femoral arteries bilaterally with severe greater than 90% stenosis of celiac trunk. HISTORY: For details, please see the history and physical dated April 22, 2017. In brief, the patie nt is a 67-year-old male with a history of squamous cell lung cancer, who presented to the emergency department with burning lower extremity pain. He had several ER visits and was diagnosed with sonali pheral neuropathy as a side effect from his chemotherapy. He was admitted to the hospital due to po or pain control. HOSPITAL COURSE: Patient was admitted to the medical-surgical unit. On exam, he was found to have a bottled extremities with absent pulses and a CT angiogram of the abdominal aorta with bilateral lo wer extremity runoff revealed a completely thrombosed aorta. Surgery was consulted. The patient wa s started on a heparin drip and transferred to the intensive care unit. He underwent aortobifemoral bypass by Dr. Jm Rubio the following day with excellent circulation postoperatively. He did, however, have persistent neuropathic pain, which may be a result of a nerve injury due to his chroni renu poor perfusion of his lower extremities. It is also possible he does have some underlying per ipheral neuropathy as a side effect from his chemo. He was up titrated on gabapentin with good affe ct. His pain is improved at the time of discharge. He will continue up titration of gabapentin as needed. He was started on a daily aspirin, as well as a statin given his peripheral vascular diseas e. Oncology consulted during the hospitalization. The patient has stated he wishes to no longer pr oceed with chemotherapy, which is adjuvant in nature, as he did have clear margins at the time of hi s surgery. However, on outpatient followup with Dr. Ruelas to continue to discuss ongoing chemo. At the time of discharge, he is ambulating and tolerating a full diet. His bowels are moving. Ayala cindi, he has developed significant deconditioning and will therefore require ongoing rehab. DISPOSITION: [facility]. DISCHARGE MEDICATIONS: Please see [facility] for complete updated outpatient medication list. New me dications on discharge include Tylenol 1000 mg p.o. t.i.d., #90, no refills; aspirin 81 mg p.o. paulina y, #90, no refills; atorvastatin 20 mg p.o. daily, #90, no refills; gabapentin 600 mg p.o. t.i.d., # 90, no refills; Dilaudid 2-4 mg p.o. q.6 hours p.r.n., #30, no refills; melatonin 3 mg p.o. q.h.s., #30, no refills; MiraLAX 17 g p.o. daily p.r.n.; and Senokot 1-2 tabs p.o. b.i.d. p.r.n. He will co ntinue his other outpatient medications as previously prescribed. Discontinued medications include [place], MiraLAX. FOLLOWUP: 1. Dr. Jm Rubio in 1 week for wound check and staple removal. 2. Dr. Ruelas at [facility]. 3. Primary care. /[id number]/MODL
== END 2017-05-01 12:59 | DRG 271 ==
LOC: F1N 04-22 01:04 → F2N 04-22 05:33 → F3E 04-29 11:58
PROVIDERS: ADMIT Hospitalist; ATTEND Hospitalist
PROC: 04100JK Bypass Abdominal Aorta to Bilateral Femoral Arteries with Synthetic Substitute, Open Approach (ICD-10-PCS; principal; 2017-04-23 17:45)
DX: I74.09 Other arterial embolism and thrombosis of abdominal aorta (principal); G62.9 Polyneuropathy, unspecified; C34.2 Malignant neoplasm of middle lobe, bronchus or lung; G89.29 Other chronic pain; F11.20 Opioid dependence, uncomplicated; D64.9 Anemia, unspecified; F10.921 Alcohol use, unspecified with intoxication delirium; I73.9 Peripheral vascular disease, unspecified; Z90.2 Acquired absence of lung [part of]
CPT/HCPCS: 85520-90; 96374; 97110-GP; 97116-GP; 97162-GP; 97166-GO; 97535-GO; C1757; C1768; G8978-GP-CM; G8979-GP-CJ; G8987-GO-CL; G8988-GO-CI; J1100; J1170; J1642; J1644; J1650; J1885; J1940; J2250; J2370; J2405; J2704; J2720; J3010; J7060; Q5101-ZA; Q9967

== ENCOUNTER → 2018-03-26 | Outpatient (CLI) | payer OTHER | LOC: FIMAGING 19:12 | PROVIDERS: ATTEND Orthopaedic Surgery Sports Medicine | DX: M76.62 Achilles tendinitis, left leg (principal); M76.72 Peroneal tendinitis, left leg; M76.892 Other specified enthesopathies of left lower limb, excluding foot ==